=== PATIENT | female | born 1965 | race Caucasian/White ===

== ENCOUNTER 2017-04-08 09:48 | Outpatient (CLI) | payer MEDICARE ==
--- NOTE | 2017-04-10 14:16 | RAD ---
MODIFIED BARIUM SWALLOW: Clinical history: Feeding difficulties, dysphagia. Unspecified. Exam is interpreted without the benefit of real-time assessment. Reference speech pathology report for full details. FINDINGS: Laryngeal penetration is present. No obvious aspiration demonstrated. IMPRESSION: Laryngeal penetration. No aspiration. Correlate with speech pathology results. POS: [facility]
== END 2017-04-08 09:49 | disposition home or self-care (01) ==
PROVIDERS: ATTEND Otolaryngology Otolaryngic Allergy
DX: R13.10 Dysphagia, unspecified (principal); R63.3 Feeding difficulties
CPT/HCPCS: 74230; G8996-GN-CJ; G8997-GN-CJ; G8998-GN-CJ

== ENCOUNTER 2017-05-17 20:09 | Observation (INO) | payer MEDICARE ==
[2017-05-17 21:00] LABS: #Basophils 0.1 thou/uL (0.0-0.2); #Eosinphils 0.1 thou/uL (0.0-0.7); #Lymphocytes 2.3 thou/uL (1.20-3.40); #Monocytes 0.5 thou/uL (0.11-0.59); %Basophils 0.8 % (0.0-1.0); %Eosinophils 2.1 % (0.0-10.0); %Lymphocytes 32.2 % (21.0-51.0); %Monocytes 7.4 % (0.0-10.0); Hematocrit 40.5 % (36.0-47.0); Red Blood Cell (RBC) Count 4.21 mill/uL (4.20-5.40)
[2017-05-17 21:23] LABS: ALT (SGPT) 43 U/L (8-55); AST (SGOT) 29 U/L (5-34); Alkaline Phosphatase 68 U/L (40-150); Anion Gap 13 mmol/L (10-20); BUN (Urea Nitrogen) 22 mg/dL (9.8-20.1); Bilirubin, Total 0.4 mg/dL (0.2-1.2); CK (CPK) 167 U/L (29-168); Calc. Creatinine Clearance 0 mL/min (70-130); Calcium 9.4 mg/dL (7.8-10.44); Carbon Dioxide 27 mmol/L (22-29); Chloride 102 mmol/L (98-107); Estimated GFR-MDRD 32; Globulin 3.4 g/dL (2.4-3.5); Protein, Total 7.1 g/dL (6.0-8.3)
[2017-05-17 21:24] LABS: Troponin I Less than 0.010 ng/mL (< 0.028)
--- NOTE | 2017-05-17 21:55 | RAD ---
EXAM: ONE VIEW CHEST 05/17/17 HISTORY: Chest pain. COMPARISON: 04/12/16 FINDINGS: Portable single view chest is suboptimal. No evidence of consolidation, mass, pleural effusion or ob vious pneumothorax. Heart is enlarged. IMPRESSION: Suboptimal evaluation due to technique. Consider dedicated two view chest radiograph. POS: [facility]
[2017-05-17] MEDS ORDERED: Ondansetron ODT 4 MG TAB SL PRN (22:42)
[2017-05-17] MEDS ORDERED: Ondansetron HCl/PF 4 MG/2 ML Vial IVP PRN (22:42)
[2017-05-17] MEDS ORDERED: Dextrose 5% in Water 1,000 ML IV PRN (23:22)
[2017-05-17] MEDS ORDERED: Acetaminophen 325 MG TAB PO PRN (23:22)
[2017-05-17] MEDS ORDERED: Dextrose 50% Abboject 50 ML SYRINGE SLOW IVP PRN (23:22)
[2017-05-17] MEDS ORDERED: Nitroglycerin 0.4 MG TAB (25 Tab Bottle) PO PRN (23:23)
[2017-05-17] MEDS ORDERED: HumaLOG 300 UNITS/3 ML VIAL SC PRN ×2 (23:23)
[2017-05-17] MEDS ORDERED: Cyclobenzaprine 10 MG TAB PO PRN (23:30)
[2017-05-18 00:09] LABS: Troponin I 0.013 ng/mL (< 0.028)
[2017-05-18 03:50] LABS: Troponin I Less than 0.010 ng/mL (< 0.028)
[2017-05-18 03:51] LABS: Anion Gap 10 mmol/L (10-20); BUN (Urea Nitrogen) 21 mg/dL (9.8-20.1); Calc. Creatinine Clearance 0 mL/min (70-130); Calcium 9.1 mg/dL (7.8-10.44); Carbon Dioxide 27 mmol/L (22-29); Chloride 105 mmol/L (98-107); Cholesterol 88 mg/dl (< 200 Desired); Estimated GFR-MDRD 36; LDL Cholesterol, Calculated 41 mg/dL; Magnesium 1.7 mg/dL (1.6-2.6); Phosphorus 3.9 mg/dL (2.3-4.7)
[2017-05-18] MEDS ORDERED: Levothyroxine Sodium 100 MCG TAB PO SCH (06:00)
--- NOTE | 2017-05-18 06:31 | PDOC.FM ---
- Subjective Subjective: Overall feeling improved this morning. She denies any chest pain this morning and states it was in her "left breast plate" yesterday with no radiation. Her primary complaint is a specific spot in her R flank that is radiating out to the side and some generalized sense of weakness on the R. She typically has a limp on the R and walks with a cane. She says she is always in pain but the R flank pain has been worsening over the last few weeks. She went to the chiropractor with minimal relief of symptoms and took flexeril at home with no relief. She did not take tramadol because she needed to drive. The pain is positional and she is able to get comfortable in certain positions. She denies any dysuria, foul smelling urine or hematuria. - Objective MAR Reviewed: Yes Vital Signs & Weight: Vital Signs (12 hours) Temp Pulse Resp BP BP Pulse Ox 05/18/17 03:11 97.6 F 73 14 133/91 H 93 L 05/18/17 01:31 97.4 F L 96 20 05/17/17 23:21 144/75 H 05/17/17 22:30 97.4 F L 96 20 169/115 H 94 L I&O: 05/16/17 05/17/17 05/18/17 06:59 06:59 06:59 Intake Total 240 Output Total 950 Balance -710 Result Diagrams: 05/17/17 20:50 05/18/17 03:19 EKG Reviewed by me: Yes Radiology Reviewed by me: Yes <Mame Craven - Last Filed: 05/18/17 07:47> - Objective Vital Signs & Weight: Vital Signs (12 hours) Temp Pulse Resp BP Pulse Ox 05/18/17 08:00 97.6 F 77 20 05/18/17 07:44 97.6 F 77 20 122/66 93 L 05/18/17 07:09 93 L 05/18/17 03:11 97.6 F 73 14 133/91 H 93 L 05/18/17 01:31 97.4 F L 96 20 05/17/17 23:21 144/75 H Weight Weight 556 lb 12.8 oz I&O: 05/17/17 05/18/17 05/19/17 06:59 06:59 06:59 Intake Total 240 Output Total 950 Balance -710 Result Diagrams: 05/17/17 20:50 05/18/17 09:00 <Lai Patterson - Last Filed: 05/18/17 11:15> Phys Exam - Physical Examination Constitutional: NAD HEENT: moist MMs, sclera anicteric Neck: supple no carotid bruits auscultated Respiratory: no wheezing, clear to auscultation bilateral Cardiovascular: no significant murmur irregularly irregular rhythm, no MSK chest TTP Gastrointestinal: soft, non-tender morbidly obese chronic venous stasis changes Neurological: non-focal, normal sensation, moves all 4 limbs no focal CN deficits Psychiatric: normal affect, A&O x 3 Deviation from normal: chronic venous stasis changes in BLE <Mame Craven E - Last Filed: 05/18/17 07:47> Dx/Plan (1) Musculoskeletal back pain Code(s): M54.9 - DORSALGIA, UNSPECIFIED Status: Acute (2) Chest pain, atypical Code(s): R07.89 - OTHER CHEST PAIN Status: Acute (3) Rwpwb-ik-qkwyhyl kidney injury Code(s): N17.9 - ACUTE KIDNEY FAILURE, UNSPECIFIED; N18.9 - CHRONIC KIDNEY DISEASE, UNSPECIFIED Status: Acute (4) Atrial fibrillation by electrocardiogram Code(s): I48.91 - UNSPECIFIED ATRIAL FIBRILLATION Status: Acute (5) Diabetes mellitus type 2 in obese Code(s): E11.9 - TYPE 2 DIABETES MELLITUS WITHOUT COMPLICATIONS; E66.9 - OBESITY , UNSPECIFIED Status: Chronic (6) Morbid obesity with BMI of 60.0-69.9, adult Code(s): E66.01 - MORBID (SEVERE) OBESITY DUE TO EXCESS CALORIES; Z68.44 - BODY MASS INDEX (BMI) 60.0-69.9, ADULT Status: Chronic (7) Obstructive sleep apnea of adult Code(s): G47.33 - OBSTRUCTIVE SLEEP APNEA (ADULT) (PEDIATRIC) Status: Chronic - Plan Plan: 52 yo F who presented with back and atypical chest pain, here for chest pain r/o 1. Atypical chest pain - No ST changes on repeat EKG overnight, no events on tele - Persistent a fib - Trop neg x3 - V/Q and stress test this morning - Hold B-apollo 2. H/o PE - Continue Xarelto - V/Q this morning as above 3. R flank pain - Given location, history and positional nature, suspect most likely MSK - Will try tramadol this morning (patient has at home) to see if any relief - Encouraged stretching and home medications - Will check UA and UCx given location of pain and DM so prone to infection 4. Generalized complaint of weakness on R side - No headache, cranial nerve and neuro exam WNL - Will continue to monitor 5. T2DM, Insulin dependent - Home medications - ACHS accuchecks 6. HTN - Home meds 7. HLD - Home meds 8. Atrial fibrillation - Home medications 9. COPD - Duonebs PRN 10. TARYN - CPAP at night 11. CKD III - Slightly bumped Cr yesterday, improved PPX: Xarelto, ambulation <Mame Craven E - Last Filed: 05/18/17 07:47> Attending Addendum - Attending Addendum I personally evaluated the patient and discussed the management with Dr. Craven and Jolie I agree with the History, Examination, Assessment and Plan documented above with any addition or exceptions noted below. Her H&P, Plan and progress notes are all reviewed and patient was seen. I think her pain is musculoskeletal. It is relieved at rest and worse with movement. She does have some atypical anterior chest pain. She is too large for a CT scan or VQ scan. Given her history of PE, I think we need to check a D-Dimer. If it is normal, no further workup. If it is elevated, she is already on Zarelto, so need to evaluate degree of heart, lung function. If we are concerned, we will need to transfer to [place]. We are checking x-rays of back and ribs and will use pain meds, flexeril to relieve the pain. <Lai Patterson E - Last Filed: 05/18/17 11:15>
[2017-05-18 06:48] VITALS: BMI 69.5
[2017-05-18] MEDS ORDERED: Alogliptin Benzoate 25 MG TABLET PO SCH (09:00)
[2017-05-18] MEDS ORDERED: Fenofibrate Nanocrystallized 145 MG TAB PO SCH (09:00)
[2017-05-18] MEDS: traMADol HCl 50 MG TAB PO PRN ×2 (09:42→14:54)
[2017-05-18] MEDS: Gabapentin 100 MG CAP PO SCH ×2 (09:43→14:21)
[2017-05-18] MEDS: Insulin Detemir 100 UNITS/ML 80 UNITS in Pre-Filled Syringe 1 EACH SC SCH ×3 (09:43→11:23)
--- NOTE | 2017-05-18 11:16 | HP-2 ---
CODE STATUS: DNR. PRIMARY CARE PHYSICIAN: [facility] with Dr. Yoder. ATTENDING PHYSICIAN: Dr. Patterson. RESIDENT: Dr. Dave. CHIEF COMPLAINT: Chest and back pain. HISTORY OF PRESENT ILLNESS: This is a 52-year-old female with past medical history of hypertension, diabetes, hyperlipidemia, atrial fibrillation, COPD and history of PEs who presented with pain in h er back; this has been going on for several weeks. She reports it feels like someone is stabbing in her back and twisting the knife. Today, the pain got significantly worse and became constant. She states that she cannot take a deep breath because of the pain. She also started having pain right on her breastbone this afternoon. Movement makes it worse, sharp pain that comes and goes. She has shortness of breath due to her pain. She is also having some right arm weakness and pain as well. PAST MEDICAL HISTORY: 1. Hypertension. 2. Diabetes type 2. 3. Hyperlipidemia. 4. Atrial fibrillation. 5. Morbid obesity. 6. Chronic obstructive pulmonary disease. 7. Obstructive sleep apnea. 8. Migraines. 9. History of pulmonary embolus 16 years ago. PAST SURGICAL HISTORY: Hysterectomy and cardioversion for atrial fibrillation in 2011. ALLERGIES: No known drug allergies. MEDICATIONS: 1. Vitamin D3 5000 units p.o. b.i.d. 2. Toujeo 160 units subcu q.a.m. 3. Magnesium 400 mg p.o. daily. 4. Metoprolol tartrate 75 mg p.o. b.i.d. 5. [place] 300 mg 3 caps p.o. b.i.d. 6. Tramadol 50 mg p.o. b.i.d. 7. Atorvastatin 40 mg p.o. at bedtime. 8. Flexeril 10 mg p.o. t.i.d. 9. Fenofibrate 145 mg p.o. daily. 10. Gabapentin 100 mg p.o. t.i.d. 11. Insulin Humulin 70/30, 110 units subcu at bedtime. 12. Synthroid 100 mcg p.o. 0600. 13. Tradjenta 5 mg p.o. daily. 14. Xarelto 20 mg p.o. at bedtime. FAMILY HISTORY: Diabetes, pernicious anemia, Paget disease and heart disease. SOCIAL HISTORY: Denies tobacco, alcohol or drug use. Walks with a cane because of balance issues. REVIEW OF SYSTEMS: Twelve-point review of systems was conducted, it was negative except as mentione d in the HPI. PHYSICAL EXAMINATION: VITAL SIGNS: Blood pressure 125/94, pulse 89, respiratory rate 15, temperature 98.0, pulse ox 95% o n room air. Current weight 250 kilograms. GENERAL: Alert and oriented x3 in no acute distress, morbidly obese, appropriately interactive. EYES: Pupils are equal, round and reactive to light. Extraocular muscles are intact. Conjunctivae within normal limits. ENT: Nasal mucosa. Oropharynx within normal limits. NECK: Supple. No lymphadenopathy. CARDIOVASCULAR: Difficult to assess secondary to body habitus. RESPIRATORY: Distant breath sounds secondary to body habitus. ABDOMEN: Obese, soft and nontender to palpation. Normoactive bowel sounds. MUSCULOSKELETAL: Structure and tone within normal limits, 5/5 muscle strength. Tender to palpation in right paraspinal muscles. NEUROLOGIC: No focal deficits. Sensation within normal limits. GCS 15. PSYCHIATRIC: Appropriate. LABORATORY DATA: WBC 7.0, hemoglobin 12.8, hematocrit 40.5 and platelets 258. Sodium 138, potassiu m 4.0, chloride 102, CO2 of 27, BUN 22, creatinine 1.68, GFR 32, glucose 266, calcium 9.4, total bárbara irubin 0.4, AST 24, ALT 43, alkaline phosphatase 68. BNP 60. CK 167, CK-MB 1.8 and troponin less t amado 0.01. IMAGING DATA: EKG showed atrial fibrillation with incomplete left bundle branch block and nonspecif ic T-wave abnormality. ASSESSMENT AND PLAN: This is a 52-year-old female who presents with: 1. Atypical chest pain. She has a history of prior pulmonary embolism concern based on presentatio n that she could have pulmonary embolism versus coronary artery disease. Well's score of 1.5, heart score of 4. We will get a VQ scan as patient is unable to fit in the CT scanner. We will make her n.p.o. at midnight. Hold beta-apollo and get stress test. We will give nitro p.r.n. chest pain. We will give Ultram p.r.n. back pain and we will trend cardiac enzymes x3, get an EKG in the [facility]. We will monitor on tele. 2. History of pulmonary embolus. We will observe on telemetry. Continue home medications. 3. Diabetes type 2, insulin-dependent. We will continue home medication, sliding scale insulin, Ac cu-Cheks a.c. and at bedtime and consistent carbohydrate diet. 4. Hypertension. Continue home medications. 5. Hyperlipidemia. Continue home medications. 6. Atrial fibrillation. Currently in atrial fibrillation. Continue home medications. 7. Chronic obstructive pulmonary disease. DuoNebs p.r.n., oxygen as needed. 8. Chronic kidney disease stage 3, stable. Monitor. 9. VT prophylaxis. Continue Xarelto. DISPOSITION: Observe on telemetry. Symptomatic medications will be provided. History and physical exam as well as management discussed with Dr. Patterson.
[2017-05-18 11:26] LABS: Bilirubin Negative (Negative); Blood, Urine Negative (Negative); Glucose, Urine (Dipstick) Negative (Negative); Ketone, Urine Negative (Negative); Nitrite Negative (Negative); Protein, Urine (Dipstick) Negative (Neg-Trace)
[2017-05-18 11:34] LABS: Bacteria/HPF None Seen HPF (None Seen); Hyaline Casts/LPF 0-3 HYALINE CAST LPF (0-3 Hyaline); RBC/HPF 0-3 HPF (0-3); Squamous Epithelial 0-3 HPF (0-3); WBC/HPF 0-3 HPF (0-3)
--- NOTE | 2017-05-18 12:22 | RAD ---
THREE VIEWS LUMBOSACRAL SPINE: COMPARISON: None. HISTORY: Low back pain. FINDINGS: Three views lumbosacral spine are limited secondary to the patient's large body habitus. The verteb ral bodies and intervertebral disks demonstrate normal height and alignment without fracture or subl uxation. Small osteophytes are seen along the end plates throughout the lumbar spine. IMPRESSION: Mild degenerative changes of the lumbar spine without acute osseous abnormality. POS: [facility]
--- NOTE | 2017-05-18 12:25 | RAD ---
THREE VIEWS OF THORACIC SPINE: COMPARISON: None. HISTORY: Back pain. FINDINGS: Three views of the thoracic spine show the vertebral bodies and intervertebral disks to demonstrate normal height and alignment without fracture or subluxation. Moderate osteophytes are seen througho ut the thoracic spine. IMPRESSION: Moderate degenerative changes of the thoracic spine without acute osseous abnormality. POS: [facility]
[2017-05-18] MEDS ORDERED: Insulin NPH/Reg Insulin Hm 300 UNITS/3 ML VIAL SC SCH (17:00)
[2017-05-18] MEDS ORDERED: Rivaroxaban 10 MG TAB PO SCH (17:00)
[2017-05-18 17:04] VITALS: BP 129/78; TEMP 97.4
[2017-05-18] MEDS ORDERED: Atorvastatin Calcium 40 MG TAB PO SCH (21:00)
[2017-05-18] MEDS ORDERED: Insulin Detemir 100 UNITS/ML 80 UNITS in Pre-Filled Syringe 1 EACH SC SCH (21:00)
--- NOTE | 2017-05-20 07:54 | DIS-2 ---
DATE OF ADMISSION: 05/17/2017 DATE OF DISCHARGE: 05/18/2017 RESIDENT: Mame Craven M.D. ADMITTING ATTENDING: Lai Patterson M.D. DISCHARGE ATTENDING: Lai Patterson M.D. CONSULTS: None. PROCEDURES: 1. Chest x-ray (05/17/2017): Suboptimal evaluation due to technique. Consider dedicated two-view chest radiograph. Portable single chest view is suboptimal. No evidence of consolidation, mass, pleural effusion, obvious pneumonia or obvious pneumothorax. Heart is enlarged. 2. Lumbar spine x-ray (05/18/2017): Moderate degenerative changes of the lumbar spine without acute osseous abnormality. 3. Thoracic spine x-ray (05/18/2017: Moderate degenerative changes of the thoracic spine without acute osseous abnormality. PRIMARY DIAGNOSIS: Musculoskeletal back pain. SECONDARY DIAGNOSES: 1. Atypical chest pain. 2. History of pulmonary embolism and deep vein thrombosis. 3. Atrial fibrillation. 4. Insulin-dependent type 2 diabetes mellitus. 5. Hypertension. 6. Hyperlipidemia. 7. Chronic obstructive pulmonary disease. 8. Obstructive sleep apnea. 9. Chronic kidney disease, stage 3. DISCHARGE MEDICATIONS: 1. Vitamin D3 of 5000 units p.o. b.i.d. 2. Gabapentin 100 mg p.o. t.i.d. 3. Fish oil 1000 mg 1 capsules b.i.d. 4. Flexeril 10 mg p.o. t.i.d. p.r.n. muscle spasm. 5. Fenofibrate 145 mg p.o. daily. 6. Tradjenta 5 mg p.o. daily. 7. Humulin 70/30, 110 units subcu at bedtime. 8. Xarelto 20 mg p.o. at bedtime. 9. Magnesium oxide 400 mg p.o. daily. 10. Atorvastatin Calcium 40 mg p.o. h.s. 11. Tramadol HCl 50 mg p.o. b.i.d. p.r.n. 12. Synthroid 100 mcg p.o. daily. 13. Toujeo 160 units subcu q.a.m. 14. Metoprolol 75 mg p.o. b.i.d. 15. Lisinopril 20 mg po daily HISTORY OF PRESENT ILLNESS AND HOSPITAL COURSE: Ms. Brooks presented with CC of R flank pain. She states that it has been coming on and off over the last few weeks and on the day of admission got to the point where she had to lift her arms up to take a deep breath. She denied any rashes or lesions. She reported that she did not have any relief with Flexeril, though she thought it was something musculoskeletal. With the patient's significant comorbidities and history of pulmonary embolism, she was admitted for observation and further workup. She had negative troponins and no changes on EKG. The patient is above the weight limit for CTA and nuclear medicine studies at this facility; and therefore, a stress test and V/Q scan were also unable to be performed. The patient's Well's score was 1 and a D-dimer was performed, which was 0.45 and within normal limits for what literature suggests to be threshold for concern for DVT/PE. The patient is on Xarelto for anticoagulation. She had some relief of pain with tramadol and reports that she did not take that at home because she was needed to drive that day. A thoracic and lumbar spine radiograph also did not show any acute osseous changes in her spine including evidence of compression fracture. At this time, her pain is likely primarily musculoskeletal with the positional nature and waxing and waning of the last few weeks. She was encouraged to stretch, use heating pads, and take medications she has at home for pain. It is also recommended the patient to consider outpatient physical therapy for gentle exercise routine to try to prevent these symptoms from occurring. The patient had no concerns upon discussion of final plan and was ready for a discharge. It would be reasonable to consider referral for facility that can perform stress test on patient and/or to bag adjuster that can assist with mitigating risk factors. DISPOSITION: Stable. DISCHARGE INSTRUCTIONS: 1. Location: Home. 2. Diet: Consistent carbohydrate and heart healthy. 3. Activity: As tolerated and recommend stretching and no heavy lifting until pain is improved. 4. Followup: With PCP, Dr. Yoder within 1 week. GOYO
== END 2017-05-18 18:29 | disposition home or self-care (01) ==
LOC: ERS 20:09 → 2SW 21:40
PROVIDERS: ADMIT Internal Medicine; ATTEND Internal Medicine
DX: M79.1 Myalgia (principal); M54.9 Dorsalgia, unspecified; R07.89 Other chest pain; I10 Essential (primary) hypertension; E11.9 Type 2 diabetes mellitus without complications; E78.5 Hyperlipidemia, unspecified; I48.91 Unspecified atrial fibrillation; J44.9 Chronic obstructive pulmonary disease, unspecified; G47.33 Obstructive sleep apnea (adult) (pediatric); G43.909 Migraine, unspecified, not intractable, without status migrainosus; E66.01 Morbid (severe) obesity due to excess calories; Z68.44 Body mass index [BMI] 60.0-69.9, adult; Z79.4 Long term (current) use of insulin; Z79.01 Long term (current) use of anticoagulants; Z79.899 Other long term (current) drug therapy; Z90.710 Acquired absence of both cervix and uterus; Z98.890 Other specified postprocedural states; Z86.711 Personal history of pulmonary embolism
CPT/HCPCS: 71010; 72072; 72100; 80048; 80053; 80061; 81001; 82550; 82553; 82565; 82962 ×2; 83735; 83880; 84100; 84443; 84484 ×3; 85025; 85379; 87086; 93005 ×2; 94760 ×2; 99285; G0378; 36415; 36416; 93010; J1815

== ENCOUNTER 2017-06-27 21:58 | Emergency (ER) | payer MEDICARE ==
[2017-06-28] MEDS ORDERED: Bacitracin Zinc 1 Packet ONE (00:06)
[2017-06-28] MEDS ORDERED: Adacel (T-DAP) 0.5 ML VIAL ONE (00:21)
== END 2017-06-28 00:52 | disposition home or self-care (01) ==
LOC: ERS 21:58
DX: S90.812A Abrasion, left foot, initial encounter (principal); E66.9 Obesity, unspecified; E03.9 Hypothyroidism, unspecified; I48.91 Unspecified atrial fibrillation; E11.9 Type 2 diabetes mellitus without complications; I10 Essential (primary) hypertension; F41.9 Anxiety disorder, unspecified; X58.XXXA Exposure to other specified factors, initial encounter
CPT/HCPCS: 90471; 90715

== ENCOUNTER 2018-04-04 21:39 | Emergency (ER) | payer MEDICARE ==
[2018-04-04] MEDS ORDERED: Lidocaine 1% PF 5 ML VIAL ONE (23:25)
== END 2018-04-05 00:39 | disposition home or self-care (01) ==
LOC: ERS 21:39
DX: N76.4 Abscess of vulva (principal); E66.9 Obesity, unspecified; E03.9 Hypothyroidism, unspecified; E11.22 Type 2 diabetes mellitus with diabetic chronic kidney disease; I12.9 Hypertensive chronic kidney disease with stage 1 through stage 4 chronic kidney disease, or unspecified chronic kidney disease; N18.1 Chronic kidney disease, stage 1; I48.91 Unspecified atrial fibrillation; F41.9 Anxiety disorder, unspecified; G43.909 Migraine, unspecified, not intractable, without status migrainosus; J44.9 Chronic obstructive pulmonary disease, unspecified; G47.30 Sleep apnea, unspecified; Z79.4 Long term (current) use of insulin; Z79.891 Long term (current) use of opiate analgesic
CPT/HCPCS: 56405; 87070; 87205; J2001

== ENCOUNTER 2019-10-27 05:21 | Emergency (ER) | payer MEDICARE ==
[2019-10-27] MEDS ORDERED: Ketorolac Tromethamine 30 MG/ML VIAL ONE (06:41)
--- NOTE | 2019-10-27 07:47 | RAD ---
Exam:Right knee 4 views HISTORY: Trauma. Fall. Pain. COMPARISON: None FINDINGS: No joint effusion. Joint spaces. No fracture, cortical irregularity or periosteal reaction. IMPRESSION: No fracture.
== END 2019-10-27 07:30 | disposition home or self-care (01) ==
LOC: ERS 05:21
DX: S80.01XA Contusion of right knee, initial encounter (principal); E11.9 Type 2 diabetes mellitus without complications; E03.9 Hypothyroidism, unspecified; I48.91 Unspecified atrial fibrillation; J44.9 Chronic obstructive pulmonary disease, unspecified; G47.30 Sleep apnea, unspecified; F41.9 Anxiety disorder, unspecified; W01.0XXA Fall on same level from slipping, tripping and stumbling without subsequent striking against object, initial encounter
CPT/HCPCS: 73564; 96372; 99283; J1885

== ENCOUNTER 2020-03-13 04:31 | Emergency (ER) | payer MEDICARE | END 2020-03-13 05:27 | disposition home or self-care (01) | LOC: ERS 04:31 | DX: J02.9 Acute pharyngitis, unspecified (principal); E11.22 Type 2 diabetes mellitus with diabetic chronic kidney disease; I12.9 Hypertensive chronic kidney disease with stage 1 through stage 4 chronic kidney disease, or unspecified chronic kidney disease; N18.1 Chronic kidney disease, stage 1; E03.9 Hypothyroidism, unspecified; G47.30 Sleep apnea, unspecified; I48.91 Unspecified atrial fibrillation; J44.9 Chronic obstructive pulmonary disease, unspecified; Z79.01 Long term (current) use of anticoagulants; Z79.899 Other long term (current) drug therapy; Z79.4 Long term (current) use of insulin; F41.9 Anxiety disorder, unspecified; E66.9 Obesity, unspecified | CPT/HCPCS: 87081; 87430; 99283 ==

== ENCOUNTER 2020-05-03 09:20 | Outpatient (CLI) | payer MEDICARE, OTHER ==
[2020-05-04 10:34] LABS: SARS-CoV-2 MS2 Positive; SARS-CoV-2 N Gene Negative; SARS-CoV-2 S Gene Negative; SARS-CoV-2 by NAA Not Detected (NotDetected); SARS-CoV-2 orf1ab Negative
== END 2020-05-03 09:21 | disposition home or self-care (01) ==
LOC: LABBT 09:20
PROVIDERS: ATTEND Orthopaedic Surgery
DX: S52.501A Unspecified fracture of the lower end of right radius, initial encounter for closed fracture (principal); Z20.828 Contact with and (suspected) exposure to other viral communicable diseases
CPT/HCPCS: 87635; U0003

== ENCOUNTER 2020-05-06 07:38 | Day surgery (SDC) | payer MEDICARE ==
[2020-05-05 12:57] VITALS: BMI 67.5
[2020-05-06] MEDS ORDERED: Midazolam HCl 2 mg/2 ml Vial ONE (08:12)
[2020-05-06] MEDS ORDERED: Fentanyl 100 MCG/2 ML VIAL ONE ×3 (08:12→12:38)
[2020-05-06 09:54] LABS: Anion Gap 17 mmol/L (10-20); BUN (Urea Nitrogen) 21 mg/dL (9.8-20.1); Calc. Creatinine Clearance 176 mL/min (70-130); Calcium 9.2 mg/dL (7.8-10.44); Carbon Dioxide 24 mmol/L (22-29); Chloride 100 mmol/L (98-107); Estimated GFR-MDRD 39; Glucose 130 mg/dL (70-105); Potassium 4.1 mmol/L (3.5-5.1); Sodium 137 mmol/L (136-145)
[2020-05-06] MEDS ORDERED: Dexamethasone 20 MG/5 ML VIAL ONE (10:04)
[2020-05-06] MEDS ORDERED: Rocuronium Bromide 10 MG/ML (10ML VIAL) ONE (10:04)
[2020-05-06] MEDS ORDERED: Lidocaine 1% PF 5 ML VIAL ONE (10:04)
[2020-05-06] MEDS ORDERED: Succinylcholine 200 MG/10 ml SYRINGE FS ONE (10:04)
[2020-05-06] MEDS ORDERED: Bupivacaine HCl 0.5%/Epinephrine 1:200,000/PF 30 ml Vial ONE (10:04)
[2020-05-06] MEDS ORDERED: Ondansetron PF 4 MG/2 ML Vial ONE (10:04)
[2020-05-06] MEDS ORDERED: PROPOFOL 200 MG/20 ML VIAL ONE (10:04)
[2020-05-06] MEDS ORDERED: Bupivacaine/Epinephrine 0.25% 30 ML VIAL ONE (10:54)
--- NOTE | 2020-05-06 12:26 | OP ---
DATE OF PROCEDURE: 05/06/2020 OPERATION PERFORMED: Open reduction and internal fixation of right distal radial fracture. PREOPERATIVE DIAGNOSIS: Displaced right distal radial fracture. POSTOPERATIVE DIAGNOSIS: Displaced right distal radial fracture. COMPLICATIONS: None. ESTIMATED BLOOD LOSS: Minimal. IMPLANTS: Right distal radial volar plate with multiple locking and nonlocking screws. INDICATIONS: Ms. Brooks is a 55-year-old female who has fallen and fractured her distal radius. She has been indicated for open reduction and internal fixation of the distal radial fracture to restore anatomic alignment and promote healing and relieve pain. Risks have been reviewed in detail. She has elected to proceed with the operation. DESCRIPTION OF PROCEDURE: Ms. Brooks was identified in the preoperative holding area. Her correct extremity was marked. She was carried to the operating room. She was positioned supine. General anesthesia was induced. A multidisciplinary time-out was performed. The right upper extremity was prepped and draped in sterile fashion. We began the procedure with a volar approach to the distal radius. We dissected down through the subcutaneous tissues to the fascia. The fascia was opened over the FCR tendon. We then exposed the underlying pronator quadratus and elevated this from the bone. We encountered the displaced fracture. We pulled traction and used a [place] elevator to reduce the fracture into an anatomic position. At this point, we applied a [employer] volar distal radial plate. Multiple screws were placed distally and proximally. We took x-ray images, confirming this. There were no complications. We filled all remaining screw holes. Again, we took final images in orthogonal planes. We then irrigated thoroughly. Next, we closed in layers. A sterile dressing and a splint were placed. The patient was taken to the recovery room at this point in good condition. Job ID: [id number]
--- NOTE | 2020-05-06 12:54 | RAD ---
XR Wrist Rt 2 View History: ORIF right wrist Comparison: Radiograph April 30, 2020 Findings: Satisfactory appearance for plate-screw fixation distal radius. Impression: Satisfactory postoperative appearance.
--- NOTE | 2020-05-11 19:23 | EKG ---
Test Reason : PREOP Blood Pressure : / mmHG Vent. Rate : 102 BPM Atrial Rate : 105 BPM P-R Int : 000 ms QRS Dur : 118 ms QT Int : 356 ms P-R-T Axes : 000 033 -70 degrees QTc Int : 463 ms Atrial fibrillation with rapid ventricular response Incomplete left bundle branch block Nonspecific T wave abnormality , probably digitalis effect Abnormal ECG When compared with ECG of 17-FEB-2020 10:42, Minimal criteria for Anterior infarct are no longer Present Nonspecific T wave abnormality now evident in Inferior leads Nonspecific T wave abnormality, worse in Lateral leads Confirmed by PARTH IBANEZ, DR. Lopez ([id number]) on 05/11/2020 7:23:08 PM Referred By: URMILA Confirmed By:DR. John ALBA MD
== END 2020-05-06 13:40 | disposition home or self-care (01) ==
LOC: SDC 07:38
PROVIDERS: ATTEND Orthopaedic Surgery
PROC: 0PSH04Z Reposition Right Radius with Internal Fixation Device, Open Approach (ICD-10-PCS; principal; 2020-05-06)
PROC: 3E0T3BZ Introduction of Anesthetic Agent into Peripheral Nerves and Plexi, Percutaneous Approach (ICD-10-PCS; 2020-05-06)
DX: S52.531A Colles' fracture of right radius, initial encounter for closed fracture (principal); G89.18 Other acute postprocedural pain; I48.20 Chronic atrial fibrillation, unspecified; I10 Essential (primary) hypertension; J44.9 Chronic obstructive pulmonary disease, unspecified; G47.30 Sleep apnea, unspecified; E66.01 Morbid (severe) obesity due to excess calories; Z68.44 Body mass index [BMI] 60.0-69.9, adult; Z79.01 Long term (current) use of anticoagulants; Z79.4 Long term (current) use of insulin; Z79.899 Other long term (current) drug therapy; Z88.5 Allergy status to narcotic agent; W10.2XXA Fall (on)(from) incline, initial encounter
CPT/HCPCS: 25607; 64417; 73100; 76000; 80048; 93005; C1713 ×3; 93010; J0690; J1100; J2250; J2405; J2704; J3010

== ENCOUNTER 2020-11-12 20:47 | Inpatient (IN) | payer MEDICARE ==
[2020-11-12 21:12] LABS: Actual Bicarbonate (HCO3v) 22 mEq/L (22-28); Analyzer IN Cardio ER; Calcium, Ionized (venous) 1.02 mmol/L (1.16-1.32); Chloride (VBG) 94 mmol/L (98-106); Hemoglobin (Hb) 14.7 g/dL (11.7-16.0); Potassium (VBG) 5.45 mmol/L (3.70-5.30); Sodium 126.8 mmol/L (133-146)
[2020-11-12 21:32] LABS: #Basophils 0.1 thou/uL (0.0-0.2); #Eosinphils 0.1 thou/uL (0.0-0.7); #Lymphocytes 1.9 thou/uL (1.20-3.40); #Monocytes 0.4 thou/uL (0.11-0.59); #Neutrophils 5.1 thou/uL (1.40-6.50); %Basophils 0.9 % (0.0-1.0); %Eosinophils 1.4 % (0.0-10.0); %Lymphocytes 25.2 % (21.0-51.0); %Monocytes 5.4 % (0.0-10.0); %Neutrophils 67.1 % (42.0-75.0); Mean Corpuscular HGB CONC 33.6 g/dL (32.0-36.0); Mean Corpuscular Hemoglobin 30.9 pg (27.0-31.0); Mean Platelet Volume 7.6 fL (7.4-10.4); Platelet Count 269 thou/uL (130-400); RBC Distribution Width 13.6 % (11.5-14.5); Red Blood Cell (RBC) Count 4.52 mill/uL (4.20-5.40); White Blood Cell (WBC) Count 7.6 thou/uL (4.8-10.8)
[2020-11-12 21:53] LABS: ALT (SGPT) 21 U/L (8-55); AST (SGOT) 19 U/L (5-34); Albumin 3.9 g/dL (3.5-5.0); Alkaline Phosphatase 101 U/L (40-110); Anion Gap 16 mmol/L (10-20); BUN (Urea Nitrogen) 34 mg/dL (9.8-20.1); Bilirubin, Total 0.5 mg/dL (0.2-1.2); CK (CPK) 66 U/L (29-168); Calc. Creatinine Clearance 0 mL/min (70-130); Carbon Dioxide 24 mmol/L (22-29); Chloride 93 mmol/L (98-107); Globulin 3.8 g/dL (2.4-3.5); Lipase 81 U/L (8-78); Magnesium 1.9 mg/dL (1.6-2.6); Potassium 5.7 mmol/L (3.5-5.1); Protein, Total 7.7 g/dL (6.0-8.3); Sodium 127 mmol/L (136-145)
[2020-11-12 21:54] LABS: Bilirubin Negative (Negative); Blood, Urine Negative (Negative); Clarity Clear (Clear); Glucose, Urine (Dipstick) Greater than 1000 mg/dL (Negative); Ketone, Urine Negative (Negative); Leukocyte Negative Leu/uL (Negative); Nitrite Negative (Negative); Protein, Urine (Dipstick) Negative (Neg-Trace); Specific Gravity, Urine 1.021 (1.002-1.036); Urobilinogen Normal mg/dL (Less than 2); pH, Urine 6.5 (5.0-9.0)
[2020-11-12 21:56] LABS: Glucose 622 mg/dL (70-105)
[2020-11-12] MEDS ORDERED: Insulin Regular 300 UNITS/3 ML VIAL ONE (22:17)
[2020-11-12] MEDS ORDERED: Lantus 1000 UNITS/10 ML VIAL SC SCH (23:15)
[2020-11-12] MEDS ORDERED: Sodium Chloride 0.9% 1,000 ML IV SCH (23:45)
[2020-11-13 02:31] LABS: SARS-CoV-2 NAA Rapid Test Not Detected (NotDetected)
[2020-11-13] MEDS ORDERED: Senokot S 8.6-50 MG TAB PO PRN (03:17)
[2020-11-13] MEDS ORDERED: Dextrose 50% Abboject 50 ML SYRINGE SLOW IVP PRN (03:17)
[2020-11-13] MEDS ORDERED: Bisacodyl 5 MG TAB PO PRN (03:17)
[2020-11-13] MEDS ORDERED: Dextrose 5% in Water 1,000 ML IV PRN (03:17)
[2020-11-13] MEDS ORDERED: Ondansetron ODT 4 MG TAB PO PRN (03:17)
[2020-11-13] MEDS ORDERED: HumaLOG 300 UNITS/3 ML VIAL SC PRN (03:17)
[2020-11-13] MEDS ORDERED: Ondansetron PF 4 MG/2 ML Vial IVP PRN (03:17)
[2020-11-13] MEDS ORDERED: Calcium Carbonate 500 MG ChewTAB PO PRN (03:17)
[2020-11-13] MEDS ORDERED: Acetaminophen 650 MG Suppository PR PRN (03:17)
[2020-11-13] MEDS ORDERED: Bisacodyl 10 MG SUPP PR PRN (03:17)
[2020-11-13 03:19] VITALS: BMI 67.2
[2020-11-13] MEDS ORDERED: Lactated Ringer's 1,000 ML IV SCH (04:00)
[2020-11-13] MEDS ORDERED: HumaLOG 300 UNITS/3 ML VIAL ONE (05:17)
[2020-11-13] MEDS: HumaLOG 300 UNITS/3 ML VIAL SC PRN ×4 (05:20→23:43)
[2020-11-13] MEDS ORDERED: Acetaminophen 325 MG TAB ONE (05:27)
[2020-11-13] MEDS: Acetaminophen 325 MG TAB PO PRN ×4 (05:31→23:39)
[2020-11-13] MEDS: Levothyroxine Sodium 100 MCG TAB PO SCH (05:32)
[2020-11-13 07:13] LABS: #Basophils 0.1 thou/uL (0.0-0.2); #Eosinphils 0.1 thou/uL (0.0-0.7); #Lymphocytes 2.8 thou/uL (1.20-3.40); #Monocytes 0.5 thou/uL (0.11-0.59); #Neutrophils 4.7 thou/uL (1.40-6.50); %Basophils 0.7 % (0.0-1.0); %Eosinophils 1.7 % (0.0-10.0); %Lymphocytes 33.7 % (21.0-51.0); %Monocytes 6.6 % (0.0-10.0); %Neutrophils 57.4 % (42.0-75.0); Hemoglobin 12.6 g/dL (12.0-16.0); Mean Corpuscular Hemoglobin 30.2 pg (27.0-31.0); Mean Corpuscular Volume 91.6 fL (78.0-98.0); Mean Platelet Volume 7.3 fL (7.4-10.4); Platelet Count 242 thou/uL (130-400); RBC Distribution Width 13.6 % (11.5-14.5); Red Blood Cell (RBC) Count 4.16 mill/uL (4.20-5.40); White Blood Cell (WBC) Count 8.2 thou/uL (4.8-10.8)
[2020-11-13 07:25] LABS: Anion Gap 13 mmol/L (10-20); BUN (Urea Nitrogen) 32 mg/dL (9.8-20.1); Calc. Creatinine Clearance 147 mL/min (70-130); Calcium 9.5 mg/dL (7.8-10.44); Carbon Dioxide 27 mmol/L (22-29); Chloride 100 mmol/L (98-107); Glucose 276 mg/dL (70-105); Potassium 4.6 mmol/L (3.5-5.1); Sodium 135 mmol/L (136-145)
[2020-11-13] MEDS ORDERED: Insulin Regular 300 UNITS/3 ML VIAL SC SCH ×2 (08:00→18:00)
[2020-11-13] MEDS ORDERED: INSULIN GLARGINE SC SCH (09:00)
[2020-11-13] MEDS ORDERED: PRE FILLED SC SCH (09:00)
[2020-11-13] MEDS: Magnesium Oxide 400 MG TAB PO SCH ×2 (10:52→20:10)
[2020-11-13] MEDS: Lantus 1000 UNITS/10 ML VIAL SC SCH ×2 (10:52→15:04)
[2020-11-13] MEDS: Metoprolol Tartrate 50 MG TAB PO SCH ×2 (10:52→20:10)
[2020-11-13] MEDS: Lisinopril 2.5 MG TAB PO SCH (10:52)
[2020-11-13] MEDS: Nystatin Powder 15 GM BOT TOP SCH ×2 (10:52→20:11)
[2020-11-13] MEDS: Fenofibrate Nanocrystallized 145 MG TAB PO SCH (10:52)
[2020-11-13] MEDS: Insulin Regular 300 UNITS/3 ML VIAL SC SCH ×2 (12:03→16:51)
[2020-11-13] MEDS: Rivaroxaban 15 MG TAB PO SCH (16:51)
[2020-11-13] MEDS: Atorvastatin Calcium 40 MG TAB PO SCH (20:10)
[2020-11-14 05:43] LABS: #Basophils 0.1 thou/uL (0.0-0.2); #Eosinphils 0.2 thou/uL (0.0-0.7); #Lymphocytes 3.4 thou/uL (1.20-3.40); #Monocytes 0.7 thou/uL (0.11-0.59); #Neutrophils 4.8 thou/uL (1.40-6.50); %Basophils 0.9 % (0.0-1.0); %Eosinophils 2.2 % (0.0-10.0); %Lymphocytes 37.3 % (21.0-51.0); %Monocytes 7.3 % (0.0-10.0); %Neutrophils 52.3 % (42.0-75.0); Hemoglobin 13.2 g/dL (12.0-16.0); Mean Corpuscular HGB CONC 31.9 g/dL (32.0-36.0); Mean Corpuscular Hemoglobin 29.5 pg (27.0-31.0); Mean Corpuscular Volume 92.7 fL (78.0-98.0); Mean Platelet Volume 7.3 fL (7.4-10.4); Platelet Count 269 thou/uL (130-400); RBC Distribution Width 13.7 % (11.5-14.5); Red Blood Cell (RBC) Count 4.47 mill/uL (4.20-5.40); White Blood Cell (WBC) Count 9.2 thou/uL (4.8-10.8)
[2020-11-14 06:03] LABS: Anion Gap 14 mmol/L (10-20); BUN (Urea Nitrogen) 27 mg/dL (9.8-20.1); Calc. Creatinine Clearance 158 mL/min (70-130); Calcium 9.6 mg/dL (7.8-10.44); Carbon Dioxide 25 mmol/L (22-29); Chloride 102 mmol/L (98-107); Glucose 154 mg/dL (70-105); Potassium 4.5 mmol/L (3.5-5.1); Sodium 136 mmol/L (136-145)
[2020-11-14] MEDS: Acetaminophen 325 MG TAB PO PRN ×2 (06:10→15:05)
[2020-11-14] MEDS: Levothyroxine Sodium 100 MCG TAB PO SCH (06:11)
[2020-11-14] MEDS: Lantus 1000 UNITS/10 ML VIAL SC SCH (08:19)
[2020-11-14] MEDS: Metoprolol Tartrate 50 MG TAB PO SCH ×2 (08:20→20:25)
[2020-11-14] MEDS: Fenofibrate Nanocrystallized 145 MG TAB PO SCH (08:20)
[2020-11-14] MEDS: Insulin Regular 300 UNITS/3 ML VIAL SC SCH ×3 (08:20→17:26)
[2020-11-14] MEDS: Lisinopril 2.5 MG TAB PO SCH (08:20)
[2020-11-14] MEDS: Magnesium Oxide 400 MG TAB PO SCH ×2 (08:20→20:25)
[2020-11-14] MEDS: Nystatin Powder 15 GM BOT TOP SCH ×2 (08:52→20:26)
[2020-11-14] MEDS ORDERED: diphenhydrAMINE 25 MG in Sodium Chloride 0.9% 50 ML IVPB SCH (11:00)
[2020-11-14] MEDS ORDERED: Metoclopramide HCl 10 MG/2 ML VIAL IVP SCH (11:00)
[2020-11-14] MEDS ORDERED: diphenhydrAMINE 50 MG/ML VIAL IVP SCH (12:00)
[2020-11-14] MEDS: HumaLOG 300 UNITS/3 ML VIAL SC PRN ×2 (15:09→20:26)
[2020-11-14] MEDS ORDERED: SUMAtriptan Succinate 50 MG TAB PO SCH (16:45)
[2020-11-14] MEDS: Rivaroxaban 15 MG TAB PO SCH (17:26)
[2020-11-14] MEDS ORDERED: Prochlorperazine Edisylate 10 MG in Sodium Chloride 0.9% 50 ML IVPB SCH (18:30)
[2020-11-14] MEDS ORDERED: Sodium Chloride 0.9% 1,000 ML IV SCH (18:30)
[2020-11-14] MEDS: Atorvastatin Calcium 40 MG TAB PO SCH (20:25)
[2020-11-15] MEDS: Levothyroxine Sodium 100 MCG TAB PO SCH (05:46)
[2020-11-15 05:59] LABS: #Basophils 0.1 thou/uL (0.0-0.2); #Eosinphils 0.2 thou/uL (0.0-0.7); #Lymphocytes 3.5 thou/uL (1.20-3.40); #Monocytes 0.7 thou/uL (0.11-0.59); #Neutrophils 4.1 thou/uL (1.40-6.50); %Basophils 0.9 % (0.0-1.0); %Eosinophils 2.1 % (0.0-10.0); %Lymphocytes 40.9 % (21.0-51.0); %Monocytes 7.8 % (0.0-10.0); %Neutrophils 48.4 % (42.0-75.0); Mean Corpuscular HGB CONC 31.4 g/dL (32.0-36.0); Mean Corpuscular Hemoglobin 29.5 pg (27.0-31.0); Mean Corpuscular Volume 93.7 fL (78.0-98.0); Mean Platelet Volume 7.5 fL (7.4-10.4); Platelet Count 251 thou/uL (130-400); RBC Distribution Width 13.7 % (11.5-14.5); Red Blood Cell (RBC) Count 4.42 mill/uL (4.20-5.40); White Blood Cell (WBC) Count 8.5 thou/uL (4.8-10.8)
[2020-11-15 06:18] LABS: Anion Gap 13 mmol/L (10-20); BUN (Urea Nitrogen) 25 mg/dL (9.8-20.1); Calc. Creatinine Clearance 159 mL/min (70-130); Calcium 9.3 mg/dL (7.8-10.44); Carbon Dioxide 24 mmol/L (22-29); Chloride 104 mmol/L (98-107); Glucose 144 mg/dL (70-105); Potassium 4.4 mmol/L (3.5-5.1); Sodium 137 mmol/L (136-145)
[2020-11-15] MEDS ORDERED: Lantus 1000 UNITS/10 ML VIAL SC SCH (06:28)
[2020-11-15 08:50] VITALS: TEMP 97.7
[2020-11-15] MEDS ORDERED: Lactated Ringer's 1,000 ML IV SCH (09:00)
[2020-11-15] MEDS ORDERED: Prochlorperazine Edisylate 10 MG in Sodium Chloride 0.9% 50 ML IVPB SCH (09:00)
[2020-11-15] MEDS: Insulin Regular 300 UNITS/3 ML VIAL SC SCH ×2 (09:52→13:30)
[2020-11-15] MEDS: Metoprolol Tartrate 50 MG TAB PO SCH (09:59)
[2020-11-15] MEDS: Fenofibrate Nanocrystallized 145 MG TAB PO SCH (09:59)
[2020-11-15] MEDS: Magnesium Oxide 400 MG TAB PO SCH (09:59)
[2020-11-15] MEDS: Lisinopril 2.5 MG TAB PO SCH (10:00)
[2020-11-15] MEDS: Nystatin Powder 15 GM BOT TOP SCH (10:01)
[2020-11-15 11:58] VITALS: BP 150/91
[2020-11-15] MEDS: HumaLOG 300 UNITS/3 ML VIAL SC PRN (13:30)
[2020-11-15] MEDS ORDERED: Amitriptyline HCl 25 MG TAB PO SCH (21:00)
== END 2020-11-15 16:07 | disposition home or self-care (01) | DRG 638 ==
LOC: ERS 20:47 → ERHOLD 23:00 → INTOOBSV 23:00 → SURG A 11-13 10:47 → OBSVTOIN 11-14 10:48
PROVIDERS: ADMIT Student in an Organized Health Care Education/Training Program; ATTEND Student in an Organized Health Care Education/Training Program
DX: E11.65 Type 2 diabetes mellitus with hyperglycemia (principal); E87.1 Hypo-osmolality and hyponatremia; N17.9 Acute kidney failure, unspecified; Z68.44 Body mass index [BMI] 60.0-69.9, adult; G89.29 Other chronic pain; E03.9 Hypothyroidism, unspecified; G47.33 Obstructive sleep apnea (adult) (pediatric); I12.9 Hypertensive chronic kidney disease with stage 1 through stage 4 chronic kidney disease, or unspecified chronic kidney disease; E86.0 Dehydration; B37.2 Candidiasis of skin and nail; E78.5 Hyperlipidemia, unspecified; I48.91 Unspecified atrial fibrillation; N18.2 Chronic kidney disease, stage 2 (mild); R51.9 Headache, unspecified; E11.22 Type 2 diabetes mellitus with diabetic chronic kidney disease; Z20.822 Contact with and (suspected) exposure to COVID-19; E66.01 Morbid (severe) obesity due to excess calories; E87.5 Hyperkalemia; J44.9 Chronic obstructive pulmonary disease, unspecified; Z79.4 Long term (current) use of insulin; Z90.49 Acquired absence of other specified parts of digestive tract; Z90.710 Acquired absence of both cervix and uterus; Z98.890 Other specified postprocedural states
CPT/HCPCS: 0240U; 36415; 36416; 80048; 80053; 81003; 82550; 82805; 83690; 83735; 83880; 84443; 84484; 85025; 93005; 94660; 96374; G0378; J0780; J1200; J1815; J2765

== ENCOUNTER 2022-01-29 12:15 | Emergency (ER) | payer MEDICARE ==
[2022-01-29 14:36] LABS: #Eosinphils 0.2 thou/uL (0.0-0.7); #Lymphocytes 2.6 thou/uL (1.20-3.40); #Monocytes 0.5 thou/uL (0.11-0.59); #Neutrophils 4.5 thou/uL (1.40-6.50); %Basophils 0.4 % (0.0-1.0); %Eosinophils 2.6 % (0.0-10.0); %Lymphocytes 33.6 % (21.0-51.0); %Monocytes 5.8 % (0.0-10.0); %Neutrophils 57.6 % (42.0-75.0); Hemoglobin 13.6 g/dL (12.0-16.0); Mean Corpuscular HGB CONC 32.1 g/dL (32.0-36.0); Mean Corpuscular Hemoglobin 30.9 pg (27.0-31.0); Mean Corpuscular Volume 96.4 fL (78.0-98.0); Mean Platelet Volume 7.5 fL (7.4-10.4); Platelet Count 253 thou/uL (130-400); RBC Distribution Width 12.6 % (11.5-14.5); Red Blood Cell (RBC) Count 4.41 mill/uL (4.20-5.40); White Blood Cell (WBC) Count 7.8 thou/uL (4.8-10.8)
[2022-01-29 15:00] LABS: ALT (SGPT) 28 U/L (8-55); AST (SGOT) 22 U/L (5-34); Albumin 3.7 g/dL (3.5-5.0); Alkaline Phosphatase 109 U/L (40-110); Anion Gap 14 mmol/L (10-20); BUN (Urea Nitrogen) 27 mg/dL (9.8-20.1); Bilirubin, Total 0.4 mg/dL (0.2-1.2); Calc. Creatinine Clearance 0 mL/min (70-130); Calcium 8.9 mg/dL (7.8-10.44); Carbon Dioxide 28 mmol/L (22-29); Chloride 103 mmol/L (98-107); Estimated GFR 40; Globulin 3.1 g/dL (2.4-3.5); Glucose 170 mg/dL (70-105); Potassium 4.3 mmol/L (3.5-5.1); Protein, Total 6.8 g/dL (6.0-8.3); Sodium 141 mmol/L (136-145)
== END 2022-01-29 19:12 | disposition home or self-care (01) ==
LOC: ERS 12:15
DX: S23.3XXA Sprain of ligaments of thoracic spine, initial encounter (principal); R07.9 Chest pain, unspecified; Z79.899 Other long term (current) drug therapy; Z79.891 Long term (current) use of opiate analgesic; Z79.4 Long term (current) use of insulin; E03.9 Hypothyroidism, unspecified; I48.91 Unspecified atrial fibrillation; G43.909 Migraine, unspecified, not intractable, without status migrainosus; J44.9 Chronic obstructive pulmonary disease, unspecified; G47.30 Sleep apnea, unspecified; E11.22 Type 2 diabetes mellitus with diabetic chronic kidney disease; I12.9 Hypertensive chronic kidney disease with stage 1 through stage 4 chronic kidney disease, or unspecified chronic kidney disease; N18.1 Chronic kidney disease, stage 1
CPT/HCPCS: 36415; 71045; 80053; 84484; 85025; 85379; 93005

== ENCOUNTER 2022-04-13 19:18 | Inpatient (IN) | payer MEDICARE ==
[2022-04-13 20:23] LABS: #Eosinphils 0.2 thou/uL (0.0-0.7); #Lymphocytes 2.1 thou/uL (1.20-3.40); #Monocytes 0.3 thou/uL (0.11-0.59); #Neutrophils 3.4 thou/uL (1.40-6.50); %Basophils 0.7 % (0.0-1.0); %Lymphocytes 34.3 % (21.0-51.0); %Monocytes 5.1 % (0.0-10.0); %Neutrophils 56.9 % (42.0-75.0); Hemoglobin 12.8 g/dL (12.0-16.0); Mean Platelet Volume 7.6 fL (7.4-10.4); Platelet Count 259 thou/uL (130-400); RBC Distribution Width 12.7 % (11.5-14.5); Red Blood Cell (RBC) Count 4.25 mill/uL (4.20-5.40)
[2022-04-13] MEDS ORDERED: Ondansetron PF 4 MG/2 ML Vial IVP PRN (20:45)
[2022-04-13] MEDS ORDERED: Ondansetron ODT 4 MG TAB SL PRN (20:45)
[2022-04-13] MEDS ORDERED: Acetaminophen 325 MG TAB PO PRN (20:45)
[2022-04-13] MEDS ORDERED: Dextrose 5% in Water 1,000 ML IV PRN (21:11)
[2022-04-13] MEDS ORDERED: hydrALAZINE 20 MG/ML VIAL SLOW IVP PRN (21:15)
[2022-04-13] MEDS ORDERED: Azelastine 137 MCG/Spray 30 ML NS PRN (21:37)
[2022-04-13] MEDS ORDERED: Gabapentin 300 MG CAP PO PRN (21:37)
[2022-04-13] MEDS ORDERED: Cyclobenzaprine 10 MG TAB PO PRN (21:37)
[2022-04-13] MEDS ORDERED: Dextrose 50% Abboject 50 ML SYRINGE ONE (22:46)
[2022-04-13] MEDS: Dextrose 50% Abboject 50 ML SYRINGE SLOW IVP PRN (23:20)
[2022-04-14 00:19] VITALS: BP 180/102
[2022-04-14] MEDS: Dextrose 50% Abboject 50 ML SYRINGE SLOW IVP PRN (02:00)
[2022-04-14] MEDS ORDERED: Dextrose 5%-Lactated Ringers 1,000 ML IV SCH (02:00)
[2022-04-14] MEDS ORDERED: Dextrose 10% in Water 1,000 ML IV SCH ×4 (03:00→16:37)
[2022-04-14] MEDS: Levothyroxine Sodium 100 MCG TAB PO SCH (05:48)
[2022-04-14 06:30] LABS: #Eosinphils 0.2 thou/uL (0.0-0.7); #Lymphocytes 2.4 thou/uL (1.20-3.40); #Monocytes 0.6 thou/uL (0.11-0.59); #Neutrophils 5.2 thou/uL (1.40-6.50); %Basophils 0.5 % (0.0-1.0); %Eosinophils 2.4 % (0.0-10.0); %Lymphocytes 28.6 % (21.0-51.0); %Monocytes 6.9 % (0.0-10.0); %Neutrophils 61.6 % (42.0-75.0); Hemoglobin 12.3 g/dL (12.0-16.0); Mean Corpuscular HGB CONC 31.3 g/dL (32.0-36.0); Mean Corpuscular Hemoglobin 30.8 pg (27.0-31.0); Mean Corpuscular Volume 98.3 fL (78.0-98.0); Mean Platelet Volume 7.3 fL (7.4-10.4); Platelet Count 228 thou/uL (130-400); RBC Distribution Width 12.6 % (11.5-14.5); Red Blood Cell (RBC) Count 3.98 mill/uL (4.20-5.40); White Blood Cell (WBC) Count 8.5 thou/uL (4.8-10.8)
[2022-04-14 06:41] LABS: Anion Gap 11 mmol/L (10-20); BUN (Urea Nitrogen) 18 mg/dL (9.8-20.1); Calc. Creatinine Clearance 0 mL/min (70-130); Calcium 9.3 mg/dL (7.8-10.44); Carbon Dioxide 27 mmol/L (22-29); Chloride 107 mmol/L (98-107); Estimated GFR 44; Potassium 4.7 mmol/L (3.5-5.1); Sodium 140 mmol/L (136-145)
[2022-04-14 06:45] LABS: Glucose 52 mg/dL (70-105)
[2022-04-14] MEDS: Lisinopril 20 MG TAB PO SCH (08:29)
[2022-04-14] MEDS: Metoprolol Tartrate 50 MG TAB PO SCH ×2 (08:29→20:13)
[2022-04-14] MEDS: Fenofibrate Nanocrystallized 145 MG TAB PO SCH (08:29)
[2022-04-14] MEDS: Amlodipine 10 MG TAB PO SCH (08:30)
[2022-04-14] MEDS: rOPINIRole HCl 0.25 MG TAB PO SCH (08:56)
[2022-04-14] MEDS: Dextrose 10% in Water 250 ML IV SCH ×3 (10:41→20:13)
[2022-04-14] MEDS: traMADol HCl 50 MG TAB PO PRN (14:20)
[2022-04-14] MEDS ORDERED: Acetaminophen 325 MG TAB PO SCH (16:45)
[2022-04-14] MEDS ORDERED: Rivaroxaban 10 MG TAB PO SCH (21:00)
[2022-04-14] MEDS ORDERED: Atorvastatin Calcium 40 MG TAB PO SCH (21:00)
[2022-04-15] MEDS: Dextrose 10% in Water 250 ML IV SCH ×2 (02:57→05:47)
[2022-04-15] MEDS: Levothyroxine Sodium 100 MCG TAB PO SCH (05:47)
[2022-04-15] MEDS: traMADol HCl 50 MG TAB PO PRN (05:50)
[2022-04-15] MEDS ORDERED: Dextrose 10% in Water 250 ML IV SCH (06:28)
[2022-04-15] MEDS ORDERED: FLU VACC QS2022-23(6MOS UP)/PF 60 MCG/0.5 ML SYRINGE IM ONE (09:00)
[2022-04-15] MEDS: rOPINIRole HCl 0.25 MG TAB PO SCH (09:17)
[2022-04-15] MEDS: Metoprolol Tartrate 50 MG TAB PO SCH (09:17)
[2022-04-15] MEDS: Fenofibrate Nanocrystallized 145 MG TAB PO SCH (09:17)
[2022-04-15] MEDS: Amlodipine 10 MG TAB PO SCH (09:17)
[2022-04-15] MEDS: Lisinopril 20 MG TAB PO SCH (09:17)
[2022-04-15 12:04] VITALS: TEMP 97.4
== END 2022-04-15 12:30 | disposition home or self-care (01) | DRG 918 ==
LOC: ERS 19:18 → IMCU/EMU 20:30
PROVIDERS: ADMIT Family Medicine; ATTEND Family Medicine
DX: T38.3X1A Poisoning by insulin and oral hypoglycemic [antidiabetic] drugs, accidental (unintentional), initial encounter (principal); E03.9 Hypothyroidism, unspecified; E66.01 Morbid (severe) obesity due to excess calories; I48.91 Unspecified atrial fibrillation; E78.5 Hyperlipidemia, unspecified; E11.22 Type 2 diabetes mellitus with diabetic chronic kidney disease; J44.9 Chronic obstructive pulmonary disease, unspecified; G47.33 Obstructive sleep apnea (adult) (pediatric); I12.9 Hypertensive chronic kidney disease with stage 1 through stage 4 chronic kidney disease, or unspecified chronic kidney disease; E11.649 Type 2 diabetes mellitus with hypoglycemia without coma; N18.30 Chronic kidney disease, stage 3 unspecified; Z86.718 Personal history of other venous thrombosis and embolism; Z90.49 Acquired absence of other specified parts of digestive tract; Z90.710 Acquired absence of both cervix and uterus; Z79.84 Long term (current) use of oral hypoglycemic drugs; Z79.4 Long term (current) use of insulin; Z79.899 Other long term (current) drug therapy; Z88.5 Allergy status to narcotic agent
CPT/HCPCS: 36415; 36416; 80048; 85025; 90471; 90686; 94660; 96374; G0008; J1610; J7999

== ENCOUNTER 2022-07-26 17:19 | Inpatient (IN) | payer MEDICARE ==
[2022-07-26 20:02] LABS: #Eosinphils 0.2 thou/uL (0.0-0.7); #Monocytes 0.6 thou/uL (0.11-0.59); #Neutrophils 6.8 thou/uL (1.40-6.50); %Basophils 0.1 % (0.0-1.0); %Lymphocytes 20.6 % (21.0-51.0); %Monocytes 6.4 % (0.0-10.0); %Neutrophils 70.9 % (42.0-75.0); Hemoglobin 12.6 g/dL (12.0-16.0); Mean Corpuscular HGB CONC 32.6 g/dL (32.0-36.0); Mean Corpuscular Hemoglobin 30.6 pg (27.0-31.0); Mean Platelet Volume 7.6 fL (7.4-10.4); Platelet Count 278 10x3/uL (130-400); RBC Distribution Width 12.6 % (11.5-14.5); Red Blood Cell (RBC) Count 4.11 mill/uL (4.20-5.40); White Blood Cell (WBC) Count 9.6 10x3/uL (4.8-10.8)
[2022-07-26 20:25] LABS: ALT (SGPT) 10 U/L (8-55); AST (SGOT) 14 U/L (5-34); Albumin 3.9 g/dL (3.5-5.0); Alkaline Phosphatase 61 U/L (40-110); Anion Gap 14 mmol/L (10-20); BUN (Urea Nitrogen) 22 mg/dL (9.8-20.1); Bilirubin, Total 0.8 mg/dL (0.2-1.2); Calc. Creatinine Clearance 0 mL/min (70-130); Calcium 9.6 mg/dL (7.8-10.44); Carbon Dioxide 24 mmol/L (22-29); Chloride 106 mmol/L (98-107); Estimated GFR 38; Globulin 3.5 g/dL (2.4-3.5); Glucose 84 mg/dL (70-105); Lipase 38 U/L (8-78); Potassium 4.6 mmol/L (3.5-5.1); Protein, Total 7.4 g/dL (6.0-8.3); Sodium 139 mmol/L (136-145)
[2022-07-26] MEDS ORDERED: Ketorolac Tromethamine 30 MG/ML VIAL ONE (21:08)
[2022-07-26] MEDS ORDERED: Ondansetron ODT 4 MG TAB SL PRN (22:30)
[2022-07-26] MEDS ORDERED: Ondansetron PF 4 MG/2 ML Vial IVP PRN (22:30)
[2022-07-27] MEDS ORDERED: HumaLOG 300 UNITS/3 ML VIAL SC PRN ×2 (00:24)
[2022-07-27] MEDS ORDERED: Dextrose 5% in Water 1,000 ML IV PRN (00:24)
[2022-07-27] MEDS ORDERED: Dextrose 50% Abboject 50 ML SYRINGE SLOW IVP PRN (00:24)
[2022-07-27] MEDS ORDERED: traMADol HCl 50 MG TAB ONE ×2 (02:53→11:55)
[2022-07-27] MEDS: traMADol HCl 50 MG TAB PO PRN ×3 (02:56→21:10)
[2022-07-27 06:04] LABS: SARS-CoV-2 NAA Rapid Test Not Detected (NotDetected)
[2022-07-27] MEDS: Acetaminophen 500 MG TAB PO SCH ×3 (06:52→21:12)
[2022-07-27] MEDS: Levothyroxine Sodium 100 MCG TAB PO SCH (06:52)
[2022-07-27] MEDS ORDERED: Acetaminophen 500 MG TAB ONE (06:54)
[2022-07-27 07:42] LABS: #Eosinphils 0.2 thou/uL (0.0-0.7); #Monocytes 0.5 thou/uL (0.11-0.59); #Neutrophils 4.7 thou/uL (1.40-6.50); %Basophils 0.6 % (0.0-1.0); %Eosinophils 2.6 % (0.0-10.0); %Lymphocytes 27.1 % (21.0-51.0); %Monocytes 6.9 % (0.0-10.0); %Neutrophils 62.9 % (42.0-75.0); Hemoglobin 11.3 g/dL (12.0-16.0); Mean Corpuscular Hemoglobin 31.2 pg (27.0-31.0); Mean Corpuscular Volume 94.6 fl (78.0-98.0); Mean Platelet Volume 7.6 fL (7.4-10.4); Platelet Count 231 10x3/uL (130-400); RBC Distribution Width 12.6 % (11.5-14.5); Red Blood Cell (RBC) Count 3.63 mill/uL (4.20-5.40); White Blood Cell (WBC) Count 7.5 10x3/uL (4.8-10.8)
[2022-07-27] MEDS ORDERED: Metoprolol Tartrate 25 MG TAB ONE (09:02)
[2022-07-27] MEDS ORDERED: Metoprolol Tartrate 50 MG TAB ONE (09:02)
[2022-07-27] MEDS: Amlodipine 10 MG TAB PO SCH (09:09)
[2022-07-27] MEDS: Alogliptin 6.25 MG TAB PO SCH (09:09)
[2022-07-27] MEDS: metFORMIN 500 MG TAB PO SCH ×2 (09:09→18:19)
[2022-07-27] MEDS: Fenofibrate Nanocrystallized 145 MG TAB PO SCH (09:10)
[2022-07-27] MEDS: Lisinopril 20 MG TAB PO SCH (09:11)
[2022-07-27] MEDS: Metoprolol Tartrate 50 MG TAB PO SCH ×2 (09:11→21:07)
[2022-07-27] MEDS: Rivaroxaban 10 MG TAB PO SCH (09:13)
[2022-07-27] MEDS: Lidocaine 5% Patch TD SCH (09:15)
[2022-07-27 11:11] LABS: Anion Gap 12 mmol/L (10-20); BUN (Urea Nitrogen) 24 mg/dL (9.8-20.1); Calc. Creatinine Clearance 0 mL/min (70-130); Calcium 9.4 mg/dL (7.8-10.44); Carbon Dioxide 22 mmol/L (22-29); Chloride 106 mmol/L (98-107); Estimated GFR 34; Glucose 136 mg/dL (70-105); Potassium 4.4 mmol/L (3.5-5.1); Sodium 136 mmol/L (136-145)
[2022-07-27] MEDS: Insulin Regular 300 UNITS/3 ML VIAL SC SCH ×4 (14:17→22:24)
[2022-07-27] MEDS: Insulin Glargine 30 UNITS/0.3 ML VIAL SC SCH (14:17)
[2022-07-27 15:47] VITALS: BMI 68.7
[2022-07-27] MEDS: rOPINIRole HCl 0.25 MG TAB PO SCH (21:08)
[2022-07-27] MEDS: Gabapentin 300 MG CAP PO PRN (21:11)
[2022-07-27] MEDS: Transdermal Patch Removal TOP SCH (21:13)
[2022-07-28] MEDS: Levothyroxine Sodium 100 MCG TAB PO SCH (06:09)
[2022-07-28] MEDS: traMADol HCl 50 MG TAB PO PRN ×2 (06:09→16:33)
[2022-07-28] MEDS: Acetaminophen 500 MG TAB PO SCH ×2 (06:10→15:00)
[2022-07-28] MEDS: Methocarbamol 500 MG TAB PO PRN ×2 (06:20→21:01)
[2022-07-28 07:05] LABS: Anion Gap 14 mmol/L (10-20); BUN (Urea Nitrogen) 29 mg/dL (9.8-20.1); Calc. Creatinine Clearance 148 mL/min (70-130); Carbon Dioxide 21 mmol/L (22-29); Chloride 106 mmol/L (98-107); Potassium 4.4 mmol/L (3.5-5.1); Sodium 137 mmol/L (136-145)
[2022-07-28 07:06] LABS: Calcium 9.3 mg/dL (7.8-10.44); Estimated GFR 36; Glucose 91 mg/dL (70-105)
[2022-07-28] MEDS: Alogliptin 6.25 MG TAB PO SCH (08:24)
[2022-07-28] MEDS: Rivaroxaban 10 MG TAB PO SCH (08:24)
[2022-07-28] MEDS: metFORMIN 500 MG TAB PO SCH ×2 (08:24→16:33)
[2022-07-28] MEDS: Amlodipine 10 MG TAB PO SCH (08:25)
[2022-07-28] MEDS: Fenofibrate Nanocrystallized 145 MG TAB PO SCH (08:25)
[2022-07-28] MEDS: Lisinopril 20 MG TAB PO SCH (08:26)
[2022-07-28] MEDS: Metoprolol Tartrate 50 MG TAB PO SCH ×2 (08:28→21:00)
[2022-07-28] MEDS: Insulin Regular 300 UNITS/3 ML VIAL SC SCH ×4 (08:30→21:04)
[2022-07-28] MEDS: Insulin Glargine 30 UNITS/0.3 ML VIAL SC SCH (08:30)
[2022-07-28] MEDS: Lidocaine 5% Patch TD SCH (11:38)
[2022-07-28] MEDS: rOPINIRole HCl 0.25 MG TAB PO SCH (21:00)
[2022-07-28] MEDS: Gabapentin 300 MG CAP PO PRN (21:01)
[2022-07-28] MEDS: Transdermal Patch Removal TOP SCH (21:03)
[2022-07-29] MEDS: traMADol HCl 50 MG TAB PO PRN ×2 (00:26→16:44)
[2022-07-29] MEDS: Acetaminophen 500 MG TAB PO SCH ×4 (00:27→21:27)
[2022-07-29] MEDS: Levothyroxine Sodium 100 MCG TAB PO SCH (06:15)
[2022-07-29 07:37] LABS: Anion Gap 13 mmol/L (10-20); BUN (Urea Nitrogen) 29 mg/dL (9.8-20.1); Calc. Creatinine Clearance 154 mL/min (70-130); Calcium 9.1 mg/dL (7.8-10.44); Carbon Dioxide 26 mmol/L (22-29); Chloride 103 mmol/L (98-107); Estimated GFR 37; Glucose 115 mg/dL (70-105); Potassium 4.3 mmol/L (3.5-5.1); Sodium 138 mmol/L (136-145)
[2022-07-29] MEDS: Lidocaine 5% Patch TD SCH (08:40)
[2022-07-29] MEDS: Amlodipine 10 MG TAB PO SCH (08:42)
[2022-07-29] MEDS: Fenofibrate Nanocrystallized 145 MG TAB PO SCH (08:42)
[2022-07-29] MEDS: Rivaroxaban 10 MG TAB PO SCH (08:42)
[2022-07-29] MEDS: metFORMIN 500 MG TAB PO SCH ×2 (08:42→16:42)
[2022-07-29] MEDS: Alogliptin 6.25 MG TAB PO SCH (08:42)
[2022-07-29] MEDS: Lisinopril 20 MG TAB PO SCH (08:43)
[2022-07-29] MEDS: Metoprolol Tartrate 50 MG TAB PO SCH ×2 (08:43→21:28)
[2022-07-29] MEDS: Insulin Glargine 30 UNITS/0.3 ML VIAL SC SCH (08:47)
[2022-07-29] MEDS: Insulin Regular 300 UNITS/3 ML VIAL SC SCH (08:48)
[2022-07-29] MEDS: rOPINIRole HCl 0.25 MG TAB PO SCH (21:27)
[2022-07-29] MEDS: Transdermal Patch Removal TOP SCH (21:28)
[2022-07-29] MEDS ORDERED: Calcium Carbonate 500 MG ChewTAB PO PRN (21:35)
[2022-07-30] MEDS: Levothyroxine Sodium 100 MCG TAB PO SCH (06:05)
[2022-07-30] MEDS: Acetaminophen 500 MG TAB PO SCH ×4 (06:06→23:25)
[2022-07-30] MEDS: traMADol HCl 50 MG TAB PO PRN ×2 (06:07→17:18)
[2022-07-30] MEDS: metFORMIN 500 MG TAB PO SCH ×2 (08:35→17:18)
[2022-07-30] MEDS: Alogliptin 6.25 MG TAB PO SCH (08:35)
[2022-07-30] MEDS: Rivaroxaban 10 MG TAB PO SCH (08:35)
[2022-07-30] MEDS: Fenofibrate Nanocrystallized 145 MG TAB PO SCH (08:35)
[2022-07-30] MEDS: Amlodipine 10 MG TAB PO SCH (08:35)
[2022-07-30] MEDS: Lidocaine 5% Patch TD SCH (08:36)
[2022-07-30] MEDS: Lisinopril 20 MG TAB PO SCH (08:36)
[2022-07-30] MEDS: Metoprolol Tartrate 50 MG TAB PO SCH ×2 (08:36→20:43)
[2022-07-30 18:06] LABS: Hemoglobin A1c 6.8 % (4.0-6.0)
[2022-07-30] MEDS: rOPINIRole HCl 0.25 MG TAB PO SCH (20:43)
[2022-07-30] MEDS: Transdermal Patch Removal TOP SCH (20:44)
[2022-07-31] MEDS: traMADol HCl 50 MG TAB PO PRN ×3 (03:14→22:48)
[2022-07-31] MEDS: Levothyroxine Sodium 100 MCG TAB PO SCH (06:35)
[2022-07-31] MEDS: Methocarbamol 500 MG TAB PO PRN ×3 (06:35→21:11)
[2022-07-31] MEDS: Acetaminophen 500 MG TAB PO SCH ×3 (06:35→21:12)
[2022-07-31] MEDS: Lidocaine 5% Patch TD SCH (08:17)
[2022-07-31] MEDS: Lisinopril 20 MG TAB PO SCH (08:17)
[2022-07-31] MEDS: Metoprolol Tartrate 50 MG TAB PO SCH ×2 (08:17→21:13)
[2022-07-31] MEDS: Fenofibrate Nanocrystallized 145 MG TAB PO SCH (08:17)
[2022-07-31] MEDS: Rivaroxaban 10 MG TAB PO SCH (08:18)
[2022-07-31] MEDS: Amlodipine 10 MG TAB PO SCH (08:18)
[2022-07-31] MEDS: Alogliptin 6.25 MG TAB PO SCH (08:18)
[2022-07-31] MEDS: metFORMIN 500 MG TAB PO SCH ×2 (08:18→16:47)
[2022-07-31] MEDS: rOPINIRole HCl 0.25 MG TAB PO SCH (21:13)
[2022-07-31] MEDS: Transdermal Patch Removal TOP SCH (21:13)
[2022-08-01 00:11] VITALS: TEMP 97.8
[2022-08-01] MEDS: Levothyroxine Sodium 100 MCG TAB PO SCH (06:27)
[2022-08-01] MEDS: Acetaminophen 500 MG TAB PO SCH (06:27)
[2022-08-01] MEDS: Methocarbamol 500 MG TAB PO PRN (06:34)
[2022-08-01 08:12] VITALS: BP 116/71
[2022-08-01] MEDS: Lisinopril 20 MG TAB PO SCH (08:31)
[2022-08-01] MEDS: Rivaroxaban 10 MG TAB PO SCH (08:31)
[2022-08-01] MEDS: traMADol HCl 50 MG TAB PO PRN (08:32)
[2022-08-01] MEDS: Fenofibrate Nanocrystallized 145 MG TAB PO SCH (08:32)
[2022-08-01] MEDS: Amlodipine 10 MG TAB PO SCH (08:32)
[2022-08-01] MEDS: Alogliptin 6.25 MG TAB PO SCH (08:32)
[2022-08-01] MEDS: Metoprolol Tartrate 50 MG TAB PO SCH (08:33)
[2022-08-01] MEDS: Lidocaine 5% Patch TD SCH (08:33)
[2022-08-01] MEDS: metFORMIN 500 MG TAB PO SCH (08:33)
== END 2022-08-01 13:35 | disposition home or self-care (01) | DRG 556 ==
LOC: ERS 17:19 → ERHOLD 22:25 → T4-B 07-27 15:15 → OBSVTOIN 07-28 14:24
PROVIDERS: ADMIT Family Medicine; ATTEND Family Medicine
DX: M79.18 Myalgia, other site (principal); Z68.44 Body mass index [BMI] 60.0-69.9, adult; G89.4 Chronic pain syndrome; E66.01 Morbid (severe) obesity due to excess calories; J44.9 Chronic obstructive pulmonary disease, unspecified; E78.00 Pure hypercholesterolemia, unspecified; E11.22 Type 2 diabetes mellitus with diabetic chronic kidney disease; I12.9 Hypertensive chronic kidney disease with stage 1 through stage 4 chronic kidney disease, or unspecified chronic kidney disease; M19.90 Unspecified osteoarthritis, unspecified site; G47.33 Obstructive sleep apnea (adult) (pediatric); N18.9 Chronic kidney disease, unspecified; Z88.6 Allergy status to analgesic agent; Z79.890 Hormone replacement therapy; Z79.01 Long term (current) use of anticoagulants; Z79.899 Other long term (current) drug therapy; Z79.84 Long term (current) use of oral hypoglycemic drugs; Z79.4 Long term (current) use of insulin; Z90.49 Acquired absence of other specified parts of digestive tract; Z90.710 Acquired absence of both cervix and uterus
CPT/HCPCS: 36415; 36416; 72020; 80048; 80053; 83036; 83690; 85025; 96372; G0378; J1815; J1885; U0002

== ENCOUNTER 2023-03-02 13:42 | Inpatient (IN) | payer MEDICARE ==
[~2023-03-02 13:42] MED LIST: Iopamidol-370 76% 500 ML MDV (1 ML CHARGE) ONE
[2023-03-02 14:21] LABS: #Eosinphils 0.1 thou/uL (0.0-0.7); #Monocytes 0.4 thou/uL (0.11-0.59); #Neutrophils 4.2 thou/uL (1.40-6.50); %Basophils 0.6 % (0.0-1.0); %Eosinophils 1.8 % (0.0-10.0); %Monocytes 5.3 % (0.0-10.0); %Neutrophils 63.8 % (42.0-75.0); Hematocrit 44.1 % (36.0-47.0); Hemoglobin 14.2 g/dL (12.0-16.0); Mean Corpuscular HGB CONC 32.2 g/dL (32.0-36.0); Mean Corpuscular Volume 93.2 fl (78.0-98.0); Mean Platelet Volume 9.8 fL (7.4-10.4); Platelet Count 284 10x3/uL (130-400); RBC Distribution Width 13.2 % (11.5-14.5); Red Blood Cell (RBC) Count 4.73 mill/uL (4.20-5.40); White Blood Cell (WBC) Count 6.6 10x3/uL (4.8-10.8)
[2023-03-02] MEDS ORDERED: Atropine Sulfate 1 mg/10 ml Syringe ONE (14:38)
[2023-03-02] MEDS ORDERED: Metoclopramide HCl 10 MG/2 ML VIAL ONE (14:38)
[2023-03-02] MEDS ORDERED: Magnesium 2 GM/50 ML BAG (IN WATER) ONE (14:38)
[2023-03-02 14:48] LABS: ALT (SGPT) 25 U/L (8-55); AST (SGOT) 26 U/L (5-34); Alkaline Phosphatase 72 U/L (40-110); Anion Gap 16 mmol/L (10-20); BUN (Urea Nitrogen) 21 mg/dL (9.8-20.1); Bilirubin, Total 0.5 mg/dL (0.2-1.2); Calc. Creatinine Clearance 0 mL/min (70-130); Calcium 9.9 mg/dL (7.8-10.44); Carbon Dioxide 24 mmol/L (22-29); Chloride 102 mmol/L (98-107); Estimated GFR 35; Globulin 3.1 g/dL (2.4-3.5); Glucose 228 mg/dL (70-105); Lipase 48 U/L (8-78); Magnesium 1.8 mg/dL (1.6-2.6); Potassium 4.8 mmol/L (3.5-5.1); Protein, Total 7.1 g/dL (6.0-8.3); Sodium 137 mmol/L (136-145); Troponin I Less than 0.010 ng/mL (< 0.028)
[2023-03-02 18:30] LABS: Bilirubin Negative (Negative); Blood, Urine Negative (Negative); CAUTI Indications for Culture Dysuria,urgency,freq; Clarity Clear (Clear); Glucose, Urine (Dipstick) Greater than 1000 mg/dL (Negative); Ketone, Urine Negative (Negative); Leukocyte 75 Leu/uL (Negative); Nitrite Negative (Negative); Protein, Urine (Dipstick) Negative (Neg-Trace); RBC/HPF None Seen HPF (0-3); Specific Gravity, Urine 1.012 (1.002-1.036); Squamous Epithelial 0-3 HPF (0-3); Urobilinogen Normal mg/dL (Less than 2); pH, Urine 6.5 (5.0-9.0)
[2023-03-02 18:36] LABS: Bacteria/HPF 1+ HPF (None Seen); Urine Culture Reflex No No
[2023-03-02] MEDS ORDERED: Dextrose 5% in Water 1,000 ML IV PRN (22:47)
[2023-03-02] MEDS ORDERED: Glucagon 1 MG/ML KIT IM PRN (22:47)
[2023-03-02] MEDS ORDERED: Dextrose 50% Abboject 50 ML SYRINGE SLOW IVP PRN (22:47)
[2023-03-02] MEDS ORDERED: Insulin Regular 300 UNITS/3 ML VIAL SC PRN (22:47)
[2023-03-02 23:58] LABS: Troponin I 0.012 ng/mL (< 0.028)
[2023-03-03] MEDS: traMADol HCl 50 MG TAB PO PRN ×2 (01:40→20:10)
[2023-03-03 02:03] VITALS: BMI 52.4
[2023-03-03 04:28] LABS: #Eosinphils 0.2 thou/uL (0.0-0.7); #Monocytes 0.5 thou/uL (0.11-0.59); #Neutrophils 5.3 thou/uL (1.40-6.50); %Basophils 0.5 % (0.0-1.0); %Lymphocytes 27.9 % (21.0-51.0); %Monocytes 6.3 % (0.0-10.0); %Neutrophils 62.9 % (42.0-75.0); Hematocrit 42.7 % (36.0-47.0); Hemoglobin 13.7 g/dL (12.0-16.0); Mean Corpuscular HGB CONC 32.1 g/dL (32.0-36.0); Mean Corpuscular Hemoglobin 29.8 pg (27.0-31.0); Mean Platelet Volume 9.8 fL (7.4-10.4); Platelet Count 263 10x3/uL (130-400); RBC Distribution Width 13.2 % (11.5-14.5); Red Blood Cell (RBC) Count 4.59 mill/uL (4.20-5.40); White Blood Cell (WBC) Count 8.4 10x3/uL (4.8-10.8)
[2023-03-03 04:51] LABS: Anion Gap 14 mmol/L (10-20); BUN (Urea Nitrogen) 20 mg/dL (9.8-20.1); Calc. Creatinine Clearance 116 mL/min (70-130); Calcium 9.3 mg/dL (7.8-10.44); Carbon Dioxide 25 mmol/L (22-29); Chloride 103 mmol/L (98-107); Estimated GFR 37; Glucose 195 mg/dL (70-105); Potassium 3.8 mmol/L (3.5-5.1); Sodium 138 mmol/L (136-145)
[2023-03-03 04:58] LABS: Troponin I Less than 0.010 ng/mL (< 0.028)
[2023-03-03] MEDS: Levothyroxine Sodium 100 MCG TAB PO SCH (06:13)
[2023-03-03] MEDS ORDERED: metFORMIN 500 MG TAB PO SCH (08:00)
[2023-03-03] MEDS ORDERED: Lactated Ringer's 500 ML IV SCH (08:45)
[2023-03-03] MEDS ORDERED: Insulin Glargine 30 UNITS/0.3 ML VIAL SC SCH (09:45)
[2023-03-03] MEDS: Lidocaine 4% Patch TP SCH (10:07)
[2023-03-03] MEDS: Rivaroxaban 10 MG TAB PO SCH (10:08)
[2023-03-03] MEDS: Fenofibrate Nanocrystallized 145 MG TAB PO SCH (10:08)
[2023-03-03] MEDS: metFORMIN 500 MG TAB PO SCH ×2 (10:08→16:59)
[2023-03-03] MEDS: Insulin Glargine 30 UNITS/0.3 ML VIAL SC SCH (10:22)
[2023-03-03] MEDS ORDERED: [UNRECOGNIZED DRUG - OTHER] SQ SCH (12:00)
[2023-03-03] MEDS ORDERED: INSULIN REGULAR HUMAN 500 UNIT/ML SQ SCH (12:00)
[2023-03-03] MEDS: Insulin Regular 300 UNITS/3 ML VIAL SC PRN (14:03)
[2023-03-03] MEDS: Gabapentin 300 MG CAP PO PRN (20:09)
[2023-03-03] MEDS: rOPINIRole HCl 0.25 MG TAB PO SCH (20:11)
[2023-03-03] MEDS: Atorvastatin Calcium 40 MG TAB PO SCH (20:11)
[2023-03-03] MEDS: Transdermal Patch Removal TOP SCH (22:44)
[2023-03-04 05:09] LABS: #Basophils 0.1 thou/uL (0.0-0.2); #Eosinphils 0.2 thou/uL (0.0-0.7); #Monocytes 0.6 thou/uL (0.11-0.59); #Neutrophils 4.3 thou/uL (1.40-6.50); %Basophils 0.6 % (0.0-1.0); %Eosinophils 2.5 % (0.0-10.0); %Lymphocytes 36.9 % (21.0-51.0); %Monocytes 7.2 % (0.0-10.0); %Neutrophils 52.3 % (42.0-75.0); Hematocrit 42.9 % (36.0-47.0); Hemoglobin 13.7 g/dL (12.0-16.0); Mean Corpuscular HGB CONC 31.9 g/dL (32.0-36.0); Mean Corpuscular Hemoglobin 29.8 pg (27.0-31.0); Mean Corpuscular Volume 93.3 fl (78.0-98.0); Mean Platelet Volume 9.7 fL (7.4-10.4); Platelet Count 247 10x3/uL (130-400); RBC Distribution Width 13.2 % (11.5-14.5); White Blood Cell (WBC) Count 8.2 10x3/uL (4.8-10.8)
[2023-03-04] MEDS: Levothyroxine Sodium 100 MCG TAB PO SCH (05:31)
[2023-03-04 05:44] LABS: Anion Gap 12 mmol/L (10-20); BUN (Urea Nitrogen) 21 mg/dL (9.8-20.1); Calc. Creatinine Clearance 109 mL/min (70-130); Calcium 9.4 mg/dL (7.8-10.44); Carbon Dioxide 25 mmol/L (22-29); Chloride 103 mmol/L (98-107); Estimated GFR 34; Glucose 151 mg/dL (70-105); Potassium 3.8 mmol/L (3.5-5.1); Sodium 136 mmol/L (136-145)
[2023-03-04] MEDS ORDERED: Meclizine HCl 25 MG TAB PO PRN (06:42)
[2023-03-04] MEDS: Lisinopril 20 MG TAB PO SCH (08:37)
[2023-03-04] MEDS: Fenofibrate Nanocrystallized 145 MG TAB PO SCH (08:37)
[2023-03-04] MEDS: metFORMIN 500 MG TAB PO SCH ×2 (08:38→16:54)
[2023-03-04] MEDS: Lidocaine 4% Patch TP SCH (08:38)
[2023-03-04] MEDS: Insulin Glargine 30 UNITS/0.3 ML VIAL SC SCH (08:38)
[2023-03-04] MEDS: Amlodipine 10 MG TAB PO SCH (08:38)
[2023-03-04] MEDS: Rivaroxaban 10 MG TAB PO SCH (08:38)
[2023-03-04] MEDS: Gabapentin 300 MG CAP PO PRN ×2 (08:40→17:25)
[2023-03-04] MEDS ORDERED: Meclizine HCl 25 MG TAB PO SCH ×2 (09:33→18:00)
[2023-03-04] MEDS ORDERED: Metoprolol Tartrate 25 MG TAB PO SCH (09:42)
[2023-03-04] MEDS: Insulin Regular 300 UNITS/3 ML VIAL SC PRN (11:39)
[2023-03-04 13:09] LABS: SARS-CoV-2 NAA Rapid Test Not Detected (NotDetected)
[2023-03-04] MEDS: Meclizine HCl 25 MG TAB PO SCH ×2 (17:52→23:24)
[2023-03-04] MEDS: Transdermal Patch Removal TOP SCH (20:18)
[2023-03-04] MEDS: Metoprolol Tartrate 25 MG TAB PO SCH (20:18)
[2023-03-04] MEDS: rOPINIRole HCl 0.25 MG TAB PO SCH (20:18)
[2023-03-04] MEDS: Atorvastatin Calcium 40 MG TAB PO SCH (20:18)
[2023-03-05] MEDS: Meclizine HCl 25 MG TAB PO SCH ×2 (05:03→11:43)
[2023-03-05] MEDS: Levothyroxine Sodium 100 MCG TAB PO SCH (05:03)
[2023-03-05] MEDS: metFORMIN 500 MG TAB PO SCH (08:15)
[2023-03-05] MEDS: Rivaroxaban 10 MG TAB PO SCH (08:15)
[2023-03-05] MEDS: Metoprolol Tartrate 25 MG TAB PO SCH (08:15)
[2023-03-05] MEDS: Lisinopril 20 MG TAB PO SCH (08:15)
[2023-03-05] MEDS: Fenofibrate Nanocrystallized 145 MG TAB PO SCH (08:15)
[2023-03-05] MEDS: Gabapentin 300 MG CAP PO PRN (08:16)
[2023-03-05] MEDS: Lidocaine 4% Patch TP SCH (08:16)
[2023-03-05] MEDS: Amlodipine 10 MG TAB PO SCH (08:16)
[2023-03-05] MEDS: Insulin Glargine 30 UNITS/0.3 ML VIAL SC SCH (08:16)
[2023-03-05 09:41] LABS: Anion Gap 10 mmol/L (10-20); BUN (Urea Nitrogen) 21 mg/dL (9.8-20.1); Calc. Creatinine Clearance 89 mL/min (70-130); Calcium 9.4 mg/dL (7.8-10.44); Carbon Dioxide 29 mmol/L (22-29); Chloride 102 mmol/L (98-107); Estimated GFR 34; Glucose 183 mg/dL (70-105); Potassium 4.1 mmol/L (3.5-5.1); Sodium 137 mmol/L (136-145)
[2023-03-05 12:31] VITALS: BP 118/63; TEMP 97.8
[2023-03-05] MEDS ORDERED: Transdermal Patch Removal TOP SCH (21:00)
== END 2023-03-05 12:41 | disposition home or self-care (01) | DRG 149 ==
LOC: ERS 13:42 → 2NO 22:25 → OBSVTOIN 03-04 15:13
PROVIDERS: ADMIT Family Medicine; ATTEND Family Medicine
PROC: 5A09357 Assistance with Respiratory Ventilation, Less than 24 Consecutive Hours, Continuous Positive Airway Pressure (ICD-10-PCS; principal; 2023-03-04)
DX: H81.10 Benign paroxysmal vertigo, unspecified ear (principal); Z68.41 Body mass index [BMI] 40.0-44.9, adult; E66.01 Morbid (severe) obesity due to excess calories; E03.9 Hypothyroidism, unspecified; N18.30 Chronic kidney disease, stage 3 unspecified; I48.0 Paroxysmal atrial fibrillation; E11.22 Type 2 diabetes mellitus with diabetic chronic kidney disease; I12.9 Hypertensive chronic kidney disease with stage 1 through stage 4 chronic kidney disease, or unspecified chronic kidney disease; J44.9 Chronic obstructive pulmonary disease, unspecified; E78.5 Hyperlipidemia, unspecified; G25.81 Restless legs syndrome; G89.29 Other chronic pain; G43.909 Migraine, unspecified, not intractable, without status migrainosus; Z20.822 Contact with and (suspected) exposure to COVID-19; Z88.5 Allergy status to narcotic agent; Z79.899 Other long term (current) drug therapy; Z79.84 Long term (current) use of oral hypoglycemic drugs; Z98.890 Other specified postprocedural states; Z90.49 Acquired absence of other specified parts of digestive tract; Z90.710 Acquired absence of both cervix and uterus
CPT/HCPCS: 36415; 36416; 70496; 80048; 80053; 81001; 83690; 83735; 83880; 84443; 84484; 85025; 93005; 93880; 96365; 96368; 96375; G0378; J0461; J1815; J2765; J3475; J7120; Q9967

== ENCOUNTER 2024-03-25 17:02 | Emergency (ER) | payer MEDICARE ==
[2024-03-25] MEDS ORDERED: Ketorolac Tromethamine 30 MG (1 mL) VIAL ONE (18:26)
== END 2024-03-25 21:21 | disposition home or self-care (01) ==
LOC: ERS 17:02
DX: M25.561 Pain in right knee (principal); I48.91 Unspecified atrial fibrillation; I12.9 Hypertensive chronic kidney disease with stage 1 through stage 4 chronic kidney disease, or unspecified chronic kidney disease; E11.22 Type 2 diabetes mellitus with diabetic chronic kidney disease; N18.30 Chronic kidney disease, stage 3 unspecified; J44.9 Chronic obstructive pulmonary disease, unspecified; Z86.711 Personal history of pulmonary embolism; Z79.01 Long term (current) use of anticoagulants; Z86.718 Personal history of other venous thrombosis and embolism
CPT/HCPCS: 73564; 93971; J1885; 96372

== ENCOUNTER 2024-05-07 22:47 | Observation (INO) | payer MEDICARE ==
[2024-05-08 00:27] LABS: #Basophils 0.05 10x3/uL (0.0-0.2); %Basophils 0.7 % (0.0-1.0); %Lymphocytes 38.8 % (21.0-51.0); %Monocytes 6.8 % (0.0-10.0); %Neutrophils 50.2 % (42.0-75.0); Hematocrit 41.5 % (36.0-47.0); Hemoglobin 13.2 g/dL (12.0-16.0); Mean Corpuscular HGB CONC 31.8 g/dL (32.0-36.0); Mean Corpuscular Hemoglobin 30.1 pg (27.0-31.0); Mean Corpuscular Volume 94.5 fL (78.0-98.0); Mean Platelet Volume 9.7 fL (7.4-10.4); Platelet Count 252 10x3/uL (130-400); RBC Distribution Width 13.9 % (11.5-14.5); Red Blood Cell (RBC) Count 4.39 mill/uL (4.20-5.40)
[2024-05-08 01:13] LABS: ALT (SGPT) 15 U/L (8-55); AST (SGOT) 11 U/L (5-34); Albumin 3.5 g/dL (3.5-5.0); Alkaline Phosphatase 70 U/L (40-110); Anion Gap 17 mmol/L (10-20); BUN (Urea Nitrogen) 26 mg/dL (9.8-20.1); Bilirubin, Total 0.3 mg/dL (0.2-1.2); Calc. Creatinine Clearance 0 mL/min (70-130); Calcium 9.6 mg/dL (7.8-10.44); Carbon Dioxide 22 mmol/L (22-29); Chloride 107 mmol/L (98-107); Estimated GFR 36; Globulin 3.6 g/dL (2.4-3.5); Glucose 198 mg/dL (70-105); Potassium 4.3 mmol/L (3.5-5.1); Protein, Total 7.1 g/dL (6.0-8.3); Sodium 142 mmol/L (136-145)
[2024-05-08 01:14] LABS: Troponin I Less than 0.010 ng/mL (< 0.028)
[2024-05-08] MEDS ORDERED: Glucagon 1 MG/ML KIT IM PRN (04:14)
[2024-05-08] MEDS ORDERED: Dextrose 5% in Water 1,000 ML IV PRN (04:14)
[2024-05-08] MEDS ORDERED: Dextrose 50% Abboject 50 ML SYRINGE SLOW IVP PRN (04:14)
[2024-05-08] MEDS ORDERED: Insulin Lispro 100 UNIT/ML 10 ML VIAL SC PRN ×2 (04:21)
[2024-05-08 04:44] VITALS: BMI 61.3
[2024-05-08] MEDS: Aspirin 325 MG TAB PO SCH (04:52)
[2024-05-08 06:18] LABS: Troponin I Less than 0.010 ng/mL (< 0.028)
[2024-05-08 08:39] LABS: Troponin I Less than 0.010 ng/mL (< 0.028)
[2024-05-08] MEDS ORDERED: Gabapentin 300 MG CAP PO PRN (09:37)
[2024-05-08] MEDS ORDERED: Empagliflozin 25 MG TAB PO SCH (09:39)
[2024-05-08] MEDS ORDERED: Methocarbamol 500 MG TAB PO PRN (10:30)
[2024-05-08] MEDS ORDERED: INSULIN REGULAR HUMAN 500 UNIT/ML SQ SCH (12:00)
[2024-05-08] MEDS ORDERED: [UNRECOGNIZED DRUG - OTHER] SQ SCH (12:00)
[2024-05-08] MEDS: Lisinopril 20 MG TAB PO SCH (13:19)
[2024-05-08] MEDS: Empagliflozin 25 MG TAB PO SCH (13:20)
[2024-05-08] MEDS: Levothyroxine Sodium 100 MCG TAB PO SCH (13:21)
[2024-05-08] MEDS: Aspirin Chewable 81 MG TAB PO SCH (13:22)
[2024-05-08] MEDS: Meclizine HCl 25 MG TAB PO SCH (13:22)
[2024-05-08] MEDS: Amlodipine 10 MG TAB PO SCH (13:22)
[2024-05-08] MEDS: Fenofibrate Nanocrystallized 145 MG TAB PO SCH (13:22)
[2024-05-08] MEDS: Rivaroxaban 10 MG TAB PO SCH (13:22)
[2024-05-08] MEDS: Pantoprazole DR 40 MG TAB PO SCH (13:24)
[2024-05-08] MEDS: traMADol HCl 50 MG TAB PO PRN (13:24)
[2024-05-08] MEDS: Albuterol 2.5 MG (3 mL) NEB NEB PRN (13:33)
[2024-05-08 15:59] VITALS: BP 128/61; TEMP 97.2
[2024-05-08] MEDS: metFORMIN 500 MG TAB PO SCH (16:13)
[2024-05-08] MEDS ORDERED: rOPINIRole HCl 0.25 MG TAB PO SCH (21:00)
[2024-05-08] MEDS ORDERED: Atorvastatin Calcium 40 MG TAB PO SCH (21:00)
[2024-05-09] MEDS ORDERED: Levothyroxine Sodium 100 MCG TAB PO SCH (06:00)
[2024-05-09] MEDS ORDERED: Fenofibrate Nanocrystallized 145 MG TAB PO SCH (09:00)
[2024-05-09] MEDS ORDERED: Amlodipine 10 MG TAB PO SCH (09:00)
[2024-05-09] MEDS ORDERED: Lisinopril 20 MG TAB PO SCH (09:00)
[2024-05-09] MEDS ORDERED: Rivaroxaban 10 MG TAB PO SCH (09:00)
[2024-05-09] MEDS ORDERED: Empagliflozin 25 MG TAB PO SCH (09:00)
== END 2024-05-08 17:38 | disposition home or self-care (01) ==
LOC: ERS 22:47 → 2NO 05-08 03:07
PROVIDERS: ADMIT Family Medicine; ATTEND Family Medicine
DX: M94.0 Chondrocostal junction syndrome [Tietze] (principal); E66.2 Morbid (severe) obesity with alveolar hypoventilation; E78.5 Hyperlipidemia, unspecified; E78.1 Pure hyperglyceridemia; I12.9 Hypertensive chronic kidney disease with stage 1 through stage 4 chronic kidney disease, or unspecified chronic kidney disease; N18.9 Chronic kidney disease, unspecified; E11.22 Type 2 diabetes mellitus with diabetic chronic kidney disease; I48.91 Unspecified atrial fibrillation; E03.9 Hypothyroidism, unspecified; M19.90 Unspecified osteoarthritis, unspecified site; Z79.890 Hormone replacement therapy; Z79.84 Long term (current) use of oral hypoglycemic drugs; Z79.899 Other long term (current) drug therapy; Z79.51 Long term (current) use of inhaled steroids; Z70.1 Counseling related to patient's sexual behavior and orientation; Z88.5 Allergy status to narcotic agent; Z90.49 Acquired absence of other specified parts of digestive tract; Z98.890 Other specified postprocedural states; Z90.710 Acquired absence of both cervix and uterus; Z68.44 Body mass index [BMI] 60.0-69.9, adult
CPT/HCPCS: 36415; 36416; 71045; 80053; 83880; 84484; 85025; 93005; 94640; 94760; G0378; J7611

== ENCOUNTER 2024-08-06 13:50 | Emergency (ER) | payer MEDICARE ==
[2024-08-06 19:40] LABS: Bacteria/HPF 1+ HPF (None Seen); Bilirubin Negative (Negative); Blood, Urine 3+ (Negative); CAUTI Indications for Culture Acute Hematuria; Clarity Turbid (Clear); Glucose, Urine (Dipstick) 70 mg/dL (Negative); Ketone, Urine Negative (Negative); Leukocyte 500 Leu/uL (Negative); Nitrite Negative (Negative); Protein, Urine (Dipstick) Negative (Neg-Trace); RBC/HPF Greater than 50 HPF (0-3); Specific Gravity, Urine 1.019 (1.002-1.036); Squamous Epithelial 0-3 HPF (0-3); Urobilinogen Normal mg/dL (Less than 2); WBC/HPF Greater than 50 HPF (0-3)
[2024-08-06 19:41] LABS: Urine Culture Reflex Yes Yes
[2024-08-06 20:22] LABS: #Basophils 0.05 10x3/uL (0.0-0.2); %Basophils 0.6 % (0.0-1.0); %Eosinophils 2.2 % (0.0-10.0); %Lymphocytes 22.5 % (21.0-51.0); %Monocytes 6.9 % (0.0-10.0); %Neutrophils 67.3 % (42.0-75.0); Hematocrit 41.4 % (36.0-47.0); Hemoglobin 13.3 g/dL (12.0-16.0); Mean Corpuscular HGB CONC 32.1 g/dL (32.0-36.0); Mean Corpuscular Hemoglobin 29.8 pg (27.0-31.0); Mean Corpuscular Volume 92.8 fL (78.0-98.0); Mean Platelet Volume 9.5 fL (7.4-10.4); Platelet Count 239 10x3/uL (130-400); RBC Distribution Width 13.8 % (11.5-14.5); Red Blood Cell (RBC) Count 4.46 mill/uL (4.20-5.40)
[2024-08-06 20:43] LABS: ALT (SGPT) 18 U/L (Less than 34); AST (SGOT) 16 U/L (11-34); Albumin 3.7 g/dL (3.1-4.5); Alkaline Phosphatase 85 U/L (40-110); Anion Gap 14 mmol/L (10-20); BUN (Urea Nitrogen) 22 mg/dL (9.8-20.1); Bilirubin, Total 0.7 mg/dL (0.3-1.2); Calc. Creatinine Clearance 0 mL/min (70-130); Calcium 9.5 mg/dL (7.8-10.44); Carbon Dioxide 20 mmol/L (22-29); Chloride 107 mmol/L (98-107); Estimated GFR 43; Globulin 3.9 g/dL (2.4-3.5); Glucose 205 mg/dL (70-105); Potassium 4.5 mmol/L (3.5-5.1); Protein, Total 7.6 g/dL (6.0-8.3); Sodium 136 mmol/L (136-145)
== END 2024-08-06 22:14 | disposition home or self-care (01) ==
LOC: ERS 13:50
DX: N39.0 Urinary tract infection, site not specified (principal); N93.9 Abnormal uterine and vaginal bleeding, unspecified; I13.10 Hypertensive heart and chronic kidney disease without heart failure, with stage 1 through stage 4 chronic kidney disease, or unspecified chronic kidney disease; E11.22 Type 2 diabetes mellitus with diabetic chronic kidney disease; N18.30 Chronic kidney disease, stage 3 unspecified; N17.9 Acute kidney failure, unspecified
CPT/HCPCS: 36415; 76856; 80053; 81001; 85025; 87086